=== PATIENT | female | born 1935 | race African-American/Black ===

== ENCOUNTER 2016-10-04 13:42 | Inpatient (IN) | payer MEDICARE, MEDICAID ==
[~2016-10-04] VITALS: Ht 172.7 cm; Wt 56.2 kg
--- NOTE | 2016-10-04 | NUR ---
KARIME NOTES MANUAL BP 158/88. WILL CONTINUE TO MONITOR. Addendum: 10/05/16 at 0116 by STACIA BULLOCK RN ENTERED WRONG TIME
--- NOTE | 2016-10-04 13:57 | NUR ---
[id number] FROM [facility]: LEFT LEG PAIN ON EXTENSION. NO TRAUMA. PT IS AAO3, APPEARS IN NO ACUTE DISTRESS, RESPIRATION EVEN AND UNLABORED,. SKIN IS WARM TO TOUCH AND NON DIAPHORETIC. PATIENT AFEBRILE. VSS
--- NOTE | 2016-10-04 14:13 | NUR ---
PULMONOLOGIST/INTENSIVIST AT BEDSIDE
[2016-10-04] MEDS ORDERED: ACET-2605 PO (14:37)
[2016-10-04] MEDS ORDERED: CARB1CAP3 PO ×2 (14:37)
[2016-10-04] MEDS ORDERED: ASCO500T9 PO (14:37)
[2016-10-04] MEDS ORDERED: MULT-24 PO (14:37)
[2016-10-04] MEDS ORDERED: MAG30ORA PO (14:37)
[2016-10-04] MEDS ORDERED: FERR325T28 PO (14:37)
[2016-10-04] MEDS ORDERED: POLY15DR57 EACHEYE (14:37)
[2016-10-04] MEDS ORDERED: FAMO20TA8 PO (14:37)
[2016-10-04] MEDS ORDERED: PIMA17TA PO (14:37)
[2016-10-04] MEDS ORDERED: ZINC220C8 PO (14:37)
[2016-10-04] MEDS ORDERED: MAGN400O6 PO (14:37)
[2016-10-04] MEDS ORDERED: TRAM50TA2 PO (14:37)
[2016-10-04] MEDS ORDERED: DOCU-25 PO (14:37)
[2016-10-04] MEDS ORDERED: BISA5TAB10 PO (14:37)
[2016-10-04] MEDS ORDERED: LIDO30AD10 TP (14:37)
[2016-10-04] MEDS ORDERED: ACET-868 PO (14:38)
[2016-10-04] MEDS ORDERED: NA P133E RC (14:38)
--- NOTE | 2016-10-04 14:54 | NUR ---
HODA GRIFFITH, VIRGINIA STEPHEN PROFESSOR OF THEOLOGY
[2016-10-04 15:06] LABS: BASOPHILS # (AUTO) 0.1 /CMM (0.0-0.2); BASOPHILS % (AUTO) 1.5 % (0.0-2.0); EOSINOPHILS % (AUTO) 0.2 % (0.0-6.0); HEMATOCRIT 33 % (33-45); HEMOGLOBIN 10.8 g/dL (11.5-14.8); LYMPHOCYTES # (AUTO) 1.5 /CMM (0.8-4.8); LYMPHOCYTES % (AUTO) 25.8 % (20.0-44.0); MEAN CORPUSCULAR HEMOGLOBIN 25 PG (26.0-33.0); MEAN CORPUSCULAR HGB CONC 33 g/dl (31.0-36.0); MEAN CORPUSCULAR VOLUME 75 fL (82-100); MONOCYTES # (AUTO) 0.4 /CMM (0.1-1.30); NEUTROPHILS # (AUTO) 3.9 /CMM (1.8-8.9); NEUTROPHILS % (AUTO) 66.5 % (43.0-81.0); PLATELET COUNT (AUTO) 350 /CMM (150-450); RDW COEFFICIENT OF VARIATION 14.3 (11.5-15.0); RED BLOOD CELL COUNT(AUTO) 4.33 MIL/uL (4.0-5.2); WHITE BLOOD COUNT (AUTO) 5.9 K/uL (4.3-11.0)
[2016-10-04 15:15] LABS: CALCIUM, SERUM 9.8 mg/dL (8.5-10.1); CREATININE 0.6 mg/dL (0.6-1.3)
[2016-10-04 15:19] LABS: PROTHROMBIN TIME 10.4 SECS (9.5-12.7)
--- NOTE | 2016-10-04 17:19 | NUR ---
Report given to nurse Gu for shai
[2016-10-04 17:46] LABS: APPEARANCE,URINE Clear (CLEAR); BILIRUBIN,URINE Negative (NEGATIVE); BLOOD, URINE Negative Ery/uL (NEGATIVE); COLOR,URINE Yellow (YELLOW); KETONES,URINE Negative (NEGATIVE); LEUKOCYTE ESTERASE ,URINE Negative (NEGATIVE); NITRITE, URINE Negative (NEGATIVE); PROTEIN,URINE Negative (NEGATIVE); UGLUCOSE Negative (NEGATIVE); UROBILINOGEN,URINE 0.2 EU/dL (0.2)
[2016-10-04 18:00] VITALS: BP 163/93
--- NOTE | 2016-10-04 18:00 | NUR ---
RN MS NOTES RECEIVED PATIENT FROM E.R. DEPARTMENT, UNDER THE CARE OF DR. RIVAS, WITH ADMITTING DIAGNOSIS OF LEFT HIP FRACTURE, PATIENT IS ALERT AND ORIENTED X2-3, IN STABLE CONDITION, DENIES PAIN OR DISCOMFORT AT THIS TIME, INCONTINENT TO BOTH B&B, VITAL SIGNS STABLE, SKIN ASSESSMENT DONE, SKIN CLEAR AND INTACT, WITH AN OLD SCAR NOTED ON SACRAL, ALL NEEDS ATTENDED AND MET, BED ALARM ON, CALL LIGHT WITHIN REACH, WILL CONTINUE TO MONITOR.
--- NOTE | 2016-10-04 18:24 | NUR ---
pt transported to [address] [place] [address]
[2016-10-04] MEDS ORDERED: ACETAMINOPHEN 325 MG TABLET PO PRN (19:00)
[2016-10-04] MEDS ORDERED: MAGNESIUM HYDROXIDE 30 ML UDC PO PRN (19:00)
[2016-10-04] MEDS ORDERED: NA PHOS,M-B/NA PHOS,DI-BA 1 EA ENEMA RC PRN (19:00)
[2016-10-04] MEDS ORDERED: LIDOCAINE 5% (PATCH) 1 EA PATCH TP PRN (19:00)
[2016-10-04] MEDS ORDERED: ONDANSETRON HCL/PF 4 MG/2 ML VIAL IV PRN (19:00)
[2016-10-04] MEDS ORDERED: IV 1/2NS 1000 ML 1,000 ML IV PRN (19:00)
[2016-10-04] MEDS ORDERED: BISACODYL (5 MG) 5 MG TABLET.DR PO PRN (19:00)
[2016-10-04] MEDS ORDERED: MAG HYDROX/AL HYDROX/SIMETH 30 ML UDC PO PRN (19:00)
--- NOTE | 2016-10-04 19:00 | NUR ---
RN MS NOTES RECEIVED ORDERS FROM DR. RIVAS, ORDERS NOTED AND CARRIED OUT, DR. RIVAS ORDERED DILAUDID 0.2MG AND 0.3MG IV Q2H PRN, CLARIFIED WITH DR. RIVAS IF HE MEANT 2MG OR 3MG, DID NOT RECEIVED RESPONSE AT THIS TIME, WILL ENDORSE TO FARM EQUIPMENT ENGINE MECHANIC FOR AD. PER MD, TO ORDER LOVENOX MEDICATION IF NO SURGERY TOMORROW, NO SURGERY SCHEDULED AT THIS TIME, PATIENT WILL BE SEEN BY VIRGINIA COONEY NP, WILL ENDORSE TO FARM EQUIPMENT ENGINE MECHANIC RE: LOVENOX.
--- NOTE | 2016-10-04 19:25 | NUR ---
RN OPEN NOTES RECEIVED PATIENT RESTING IN BED, EASILY AROUSABLE TO NAME, WITH SON AT BEDSIDE. A/O X2. NO SIGNS OF DISTRESS OR DISCOMFORT. BREATHING EVEN AND UNLABORED. IV ACCESS IN L WRIST PATENT AND INTACT, NO SIGNS OF REDNESS OR INFILTRATION. STATES SHE CANT GET COMFORTABLE BUT NOT IN ANY PAIN AT THIS TIME. BED IN LOW LOCKED POSITION WITH SIDE RAILS X2. CALL LIGHT WITHIN REACH. WILL CONTINUE TO MONITOR.
[2016-10-04 20:00] VITALS: BP 168/85
[2016-10-04] MEDS: TRAMADOL HCL 50 MG TABLET PO PRN (20:36)
--- NOTE | 2016-10-04 20:36 | NUR ---
RN NOTES ADMINISTERED TRAMADOL 50MG ORDERED FOR PAIN 7/10 IN LEFT HIP. WILL CONTINUE TO MONITOR.
[2016-10-04] MEDS: FAMOTIDINE (20 MG) 20 MG TABLET PO SCH (20:37)
[2016-10-04] MEDS ORDERED: IV SET PRIMARY PUMP SET 1 EA INFUS.SET MC ONE (20:49)
[2016-10-04 21:00] VITALS: BP 158/88
--- NOTE | 2016-10-04 21:00 | NUR ---
RN NOTES MANUAL BP 158/88. WILL CONTINUE TO MONITOR.
[2016-10-04] MEDS: RYTARY PO SCH (21:03)
[2016-10-04] MEDS: ATORVASTATIN 10 MG TABLET PO SCH (21:04)
[2016-10-04] MEDS: POLYVINYL ALCOHOL 15 ML BOTTLE EACHEYE SCH (21:04)
[2016-10-04] MEDS: ACETAMINOPHEN ES 500 MG TABLET PO SCH (21:05)
[2016-10-04] MEDS: DOCUSATE SODIUM 100 MG CAPSULE PO SCH (21:05)
[2016-10-04] MEDS: IV 1/2NS 1000 ML 1,000 ML IV PRN (21:06)
--- NOTE | 2016-10-04 22:00 | NUR ---
RN NOTES SPOKE WITH VIR[place]IA LEGAL INSTRUMENTS EXAMINER REGARDING PATIENT. PER VIRGINIA, PATIENT NPO AFTER MIDNIGHT FOR POSSIBLE SURGERY TOMORROW, HE WILL COME IN TOMORROW AM TO SEE PATIENT.
--- NOTE | 2016-10-05 06:55 | NUR ---
RN CLOSING NOTES PATIENT RESTING IN BED, EASILY AROUSABLE TO NAME. A/O X2-3. NO SIGNS OF DISTRESS OR DISCOMFORT. BREATHING EVEN AND UNLABORED. IV ACCESS IN L WRIST PATENT AND INTACT, NO SIGNS OF REDNESS OR INFILTRATION. DENIES ANY PAIN AT THIS TIME. ALL NEEDS MET. NO SIGNIFICANT CHANGES THROUGH THEN NIGHT. REPOSITIONED Q2H. BED IN LOW LOCKED POSITION WITH SIDE RAILS X2. CALL LIGHT WITHIN REACH. WILL ENDORSE TO AM SHIFT FOR AD.
--- NOTE | 2016-10-05 07:20 | NUR ---
MS RN OPENING NOTES RELIEVED PT FROM NIGHTSHIFT NURSE IN STABLE CONDITION. A/O X2-3. PT. RESPONSIVE TO NAME AND TOUCH. NO SOB OR SIGNS OF DISTRESS AT THIS TIME. BREATHING EVEN AND UNLABORED. NPO STATUS MAINTAINED. IV ON LEFT WRIST INTACT AND PATENT RUNNING 1/2 NS @75ML/HR. PT TOLERATING INFUSION WELL. NO COMPLAINTS OF PAIN AT THIS TIME. BED IN LOW LOCKED POSITION, SIDE RAILS UP X3, CALL LIGHT WITHIN REACH. WILL CONTINUE TO MONITOR.
--- NOTE | 2016-10-05 07:35 | NUR ---
MS RN NOTES I ASKED VIRGINIA THE PA IF I CAN GIVE THE PT. HER PO MEDICATIONS GIVEN HER NPO STATUS. V[place]IA APPROVED MEDICATION ADMINISTRATION . PT REMAINS NPO EXCEPT MEDS.
[2016-10-05 08:00] VITALS: BP 131/74
[2016-10-05] MEDS ORDERED: ZINC SULFATE 220 MG CAPSULE PO SCH (09:00)
[2016-10-05] MEDS: ENOXAPARIN SODIUM 40 MG/0.4 ML DISP.SYRIN SQ SCH (09:00)
[2016-10-05] MEDS ORDERED: MULTIVITAMINS,THERAPEUTIC 1 UDTAB TABLET PO SCH (09:00)
[2016-10-05] MEDS ORDERED: ASCORBIC ACID 500 MG TABLET PO SCH (09:00)
--- NOTE | 2016-10-05 09:00 | NUR ---
TEXTED DR. SANCHEZ FOR MRI APPROVAL.
[2016-10-05] MEDS: RYTARY PO SCH ×3 (09:17→21:22)
[2016-10-05] MEDS: DOCUSATE SODIUM 100 MG CAPSULE PO SCH ×2 (09:17→16:21)
[2016-10-05] MEDS: SENNOSIDES 8.6 MG TABLET PO SCH ×2 (09:19→16:21)
[2016-10-05] MEDS: FAMOTIDINE (20 MG) 20 MG TABLET PO SCH ×2 (09:19→21:22)
[2016-10-05] MEDS: ACETAMINOPHEN ES 500 MG TABLET PO SCH ×2 (09:19→16:21)
[2016-10-05] MEDS: POLYVINYL ALCOHOL 15 ML BOTTLE EACHEYE SCH ×3 (09:20→16:21)
--- NOTE | 2016-10-05 09:32 | NUR ---
MRI APPROVED, SPOKE TO CHARGE NURSE THAT THIS MRI WILL BE DONE LATER THIS AFTERNOON AFTER 4.30PM. AND TO HAVE THE MRI CHECKLIST READY.
[2016-10-05] MEDS: IV 1/2NS 1000 ML 1,000 ML IV PRN (13:00)
[2016-10-05] MEDS ORDERED: FERROUS SULFATE (325 MG) 325 MG/TAB TABLET PO SCH (13:00)
[2016-10-05] MEDS: TRAMADOL HCL 50 MG TABLET PO PRN ×2 (15:10→21:22)
[2016-10-05 16:00] VITALS: BP 135/69
--- NOTE | 2016-10-05 17:05 | NUR ---
MS RN NOTES PT'S SON BROUGHT HER POLST FORM. DR. RIVAS'S OFFICE WAS CALLED. A VOICEMAIL WAS LEFT. CURRENTLY AWAITING A CALL BACK.
--- NOTE | 2016-10-05 19:20 | NUR ---
MS RN CLOSING NOTES PT CURRENTLY OFF UNIT FOR MRI. ALL ORDERS WERE CARRIED OUT THROUGHOUT SHIFT. SAFETY MEASURES WERE ENFORCED AND ALL PT. NEEDS ATTENDED TO. WILL ENDORSE TO NIGHTSHIFT NURSE FOR AD
--- NOTE | 2016-10-05 19:55 | NUR ---
MS/RN NOTES PT. RETURNED FROM MRI VIA GURNEY. PT. IS AWAKE, ALERT AND ORIENTED X 2. BREATHING EVEN AND UNLABORED ON ROOM AIR. NO SOB, RESPIRATORY DISTRESS OR COMPLAINTS OF PAIN NOTED AT THIS TIME. PT. WITH LEFT WRIST 20 GAUGE PERIPHERAL IV PRESENT, PATENT AND INTACT, ADMINISTERING TO PT. 1/2 NS @ 75 ML/HR. PT. SON PRESENT AT BEDSIDE. PT. COMPLAINING OF HUNGER AND ASKING TO EAT. PER DAYSHIFT NURSE SHE CALLED DR. RIVAS REGARDING PT. DIET, UNABLE TO GET A HOLD OF DR. RIVAS A MESSAGE WAS LEFT FOR TO CALL BACK. STILL AWAITING CALL BACK FROM DR. RIVAS. PT. REMAINS NPO AT THIS TIME. BED IN LOWEST POSITION, CALL LIGHT WITHIN REACH, WILL CONTINUE TO MONITOR.
[2016-10-05 20:00] VITALS: BP 158/89
--- NOTE | 2016-10-05 20:50 | NUR ---
MS/RN NOTES INFORMED DR. RIVAS PT. IS VERY HUNGRY AND COMPLAINING ABOUT NOT EATING ALL DAY. PER DR. RIVAS NEW ORDER: PUREED WITH THIN LIQUID DIET FOR DINNER TONIGHT. PT. WILL BE NPO AGAIN POST MIDNIGHT. WILL CARRY OUT ORDERS. WILL CONTINUE TO MONITOR.
[2016-10-05] MEDS ORDERED: TRAMADOL HCL 50 MG TABLET ONE (21:01)
[2016-10-05] MEDS: ATORVASTATIN 10 MG TABLET PO SCH ×2 (21:22→22:00)
--- NOTE | 2016-10-06 06:45 | NUR ---
MS/RN NOTES PT. LYING IN BED RESTING. BREATHING EVEN AND UNLABORED ON ROOM AIR. NO SOB, RESPIRATORY DISTRESS OR COMPLAINTS OF PAIN NOTED AT THIS TIME. PT. WITH LEFT WRIST 20 GAUGE PERIPHERAL IV PRESENT, PATENT AND INTACT, ADMINISTERING TO PT. 1/2 NS @ 75 ML/HR. PT. HAS BEEN NPO POST MIDNIGHT. ALL PT. NEEDS MET. PT. OFFLOADED. TURNED AND REPOSITIONED Q2H AND NEEDED. BED IN LOWEST POSITION, CALL LIGHT WITHIN REACH, WILL ENDORSE TO DAYSHIFT NURSE FOR CONTINUITY OF CARE.
--- NOTE | 2016-10-06 07:30 | NUR ---
MS RN OPENING RECEIVED PATIENT A/OX 2-3 PERIODS OF FORGETFULNESS. PATIENT AGGITATED STATING SHE WANTS TO EAT. TOLD PATIENT I WILL ASK SURGERY IF SHE CAN EAT. PATIENT ASSISTED TO POSITION OF COMFORT. ATTEMPTING TO GET OUT OF BED AND WALK. REEDUCATED PATIENT ON FALL PRECAUTIONS AND SHE STATES SHE DOES NOT CARE AND WILL GET UP IF SHE WANTS. BED ALARM ON RAILS UPX3 AND NON SLIP SOCKS. FORESTRY WORKERS SITTING WITH PATIENT UNTIL I CAN GET AN ANSWER IF SHE CAN EAT THAT WILL CALM HER DOWN; PER PATIENT. CALL LIGHT IN REACH, BED LOWERED AND LOCKED. TV ON FOR DISTRACTION. WILL ROUND Q2H OR LESS PER NEEDS. BED BY NURSES STATION
[2016-10-06 08:00] VITALS: BP 124/81
--- NOTE | 2016-10-06 08:15 | NUR ---
MS RN NOTES COURY AT BEDSIDE STATES PATIENT CAN EAT AND DR SWEENEY WILL DETERMINE IF SURGERY NECESSARY TOMORROW
--- NOTE | 2016-10-06 08:30 | NUR ---
MS RN NOTES PATIENT REFUSING MEDICATIONS. EDUCATED ON IMPORTANCE AND PATIENT STATES UNDERSTANDING
[2016-10-06] MEDS: SENNOSIDES 8.6 MG TABLET PO SCH ×2 (09:00→16:08)
[2016-10-06] MEDS: FAMOTIDINE (20 MG) 20 MG TABLET PO SCH ×3 (09:00→22:06)
[2016-10-06] MEDS: RYTARY PO SCH ×4 (09:00→22:06)
[2016-10-06] MEDS: ENOXAPARIN SODIUM 40 MG/0.4 ML DISP.SYRIN SQ SCH (09:00)
[2016-10-06] MEDS: ACETAMINOPHEN ES 500 MG TABLET PO SCH ×2 (09:00→16:08)
[2016-10-06] MEDS: DOCUSATE SODIUM 100 MG CAPSULE PO SCH ×2 (09:00→16:08)
--- NOTE | 2016-10-06 09:00 | NUR ---
MS RN NOTES PATIENT REFUSING MEDICATIONS. EDUCATED ON IMPORTANCE AND PATIENT STATES UNDERSTANDING
[2016-10-06] MEDS: POLYVINYL ALCOHOL 15 ML BOTTLE EACHEYE SCH ×3 (09:23→16:10)
[2016-10-06] MEDS: IV 1/2NS 1000 ML 1,000 ML IV PRN (09:55)
--- NOTE | 2016-10-06 10:15 | NUR ---
MS RN NOTES 3RD ATTEMPT. PATIENT REFUSING MEDICATIONS. EDUCATED ON IMPORTANCE AND PATIENT STATES UNDERSTANDING. PER DR SWEENEY NO SURGERY IS NEEDED FOR PATIENT. NOTIFIED DR RIVAS
--- NOTE | 2016-10-06 10:19 | NUR ---
MS RN NOTES PER DR SWEENEY NO SURGERY NEEDED. NOTIFIED DR RIVAS
[2016-10-06 16:00] VITALS: BP 110/63
--- NOTE | 2016-10-06 16:21 | NUR ---
MS RN NOTES NOTIFIED DR RIVAS PATIENT REFUSING ANTIPARKINSONS MEDICATIONS AND PATIENT IS BECOMING MORE LETHARGIC AND CONFUSED. PER MD NO NEW ORDERS
--- NOTE | 2016-10-06 19:00 | NUR ---
MS RN CLOSING PATIENT STABLE NO COMPLICATIONS NO CHANGES. PATIENT STATES NO NEEDS AT THIS TIME AND RAILS UPX3 FOR SAFETY, BED LOWERED AND LOCKED. CARE WILL BE ENDORSED TO RN FOR AD
--- NOTE | 2016-10-06 19:20 | NUR ---
MS/RN NOTES RECEIVED PT. LYING IN BED, AWAKE, ALERT AND ORIENTED X 2. BREATHING EVEN AND UNLABORED ON ROOM AIR. NO SOB, RESPIRATORY DISTRESS OR COMPLAINTS OF PAIN NOTED AT THIS TIME. PT. WITH LEFT WRIST 20 GAUGE PERIPHERAL IV PRESENT, PATENT AND INTACT, ADMINISTERING TO PT. 1/2 NS @ 75 ML/HR. BED IN LOWEST POSITION, CALL LIGHT WITHIN REACH, WILL CONTINUE TO MONITOR.
[2016-10-06 20:00] VITALS: BP 152/96
[2016-10-06] MEDS: ATORVASTATIN 10 MG TABLET PO SCH (22:06)
--- NOTE | 2016-10-07 06:30 | NUR ---
MS/RN NOTES PT. LYING IN BED RESTING. BREATHING EVEN AND UNLABORED ON ROOM AIR. NO SOB, RESPIRATORY DISTRESS OR COMPLAINTS OF PAIN NOTED AT THIS TIME. PT. WITH LEFT WRIST 20 GAUGE PERIPHERAL IV PRESENT, PATENT AND INTACT, ADMINISTERING TO PT. 1/2 NS @ 75 ML/HR. ALL PT. NEEDS MET. PT. OFFLOADED. TURNED AND REPOSITIONED Q2H AND NEEDED. BED IN LOWEST POSITION, CALL LIGHT WITHIN REACH, WILL ENDORSE TO DAYSHIFT NURSE FOR CONTINUITY OF CARE.
--- NOTE | 2016-10-07 07:30 | NUR ---
MS/RN OPENING NOTE PT. IS AWAKE, LYING IN BED, AWAKE, A&OX 2, PERIODS OF CONFUSION. NOT IN DISTRESS, NO SOB, BREATHING EVEN AND UNLABORED ON ROOM AIR. DOES NOT C/O PAIN. PT. IV ACCESS ON LEFT FOREARM INFUSING IV FLUIDS AT 75ML/HR. BED IN LOWEST POSITION, CALL LIGHT WITHIN REACH, WILL CONTINUE TO MONITOR.
[2016-10-07 08:00] VITALS: BP 180/95
[2016-10-07] MEDS: FAMOTIDINE (20 MG) 20 MG TABLET PO SCH ×2 (09:00→09:12)
[2016-10-07] MEDS: SENNOSIDES 8.6 MG TABLET PO SCH ×3 (09:00→17:00)
[2016-10-07] MEDS: ACETAMINOPHEN ES 500 MG TABLET PO SCH ×3 (09:00→17:00)
[2016-10-07] MEDS: ENOXAPARIN SODIUM 40 MG/0.4 ML DISP.SYRIN SQ SCH ×2 (09:00→09:19)
[2016-10-07] MEDS: DOCUSATE SODIUM 100 MG CAPSULE PO SCH ×3 (09:00→17:00)
[2016-10-07] MEDS: RYTARY PO SCH ×3 (09:00→15:00)
--- NOTE | 2016-10-07 09:00 | NUR ---
MS/ RN MEDICATIONS PT. REFUSED MEDICATIONS, PT. WAS EXPLAINED THE IMPORTANCE OF HER MEDICATIONS AND WAS ENCOURAGED TO TAKE THEM. MORNING MEDICATION WAS NOT GIVEN.
[2016-10-07] MEDS: POLYVINYL ALCOHOL 15 ML BOTTLE EACHEYE SCH ×3 (09:18→17:00)
[2016-10-07] MEDS: IV 1/2NS 1000 ML 1,000 ML IV PRN (09:29)
--- NOTE | 2016-10-07 09:30 | NUR ---
MS/RN HIGH BLOOD PRESSURE PT. HAD HIGH BLOOD PRESSURE AT 0800. CALLED DR. RIVAS, AND SPOKE WITH QUOTATION CLERK. PROVIDED BP RESULTS TO QUOTATION CLERK AND THAT PT. REFUSES TO TAKE MEDICATIONS.
--- NOTE | 2016-10-07 13:50 | NUR ---
MS/RN RECHECKED BP BP WAS 147/86, HR 90, AND SPO2 99% ON ROOM AIR. PT. WAS NOT IN DISTRESS.
--- NOTE | 2016-10-07 13:50 | NUR ---
MS/RN IV PT. IV ACCESS SITE WAS BECOMING SWOLLEN, IV WAS DISCONTINUED INFUSING AT 75ML/HR.
[2016-10-07 16:00] VITALS: BP 183/91
--- NOTE | 2016-10-07 20:03 | NUR ---
MS/WOMEN DESIGNER NOTE PT.DISCHARGE ORDER RECEIVED FROM DR. RIVAS. PT. LEFT IN STABLE CONDITION. IV SITE REMOVED ID BAND REMOVED. REPORT HAS BEEN GIVEN TO RANDI FROM [facility]. MEDICATION PICKED UP FROM PHARMACY AND GAVE TO EMT. PT. LEFT WITH ALL OF HER PERSONAL BELONGINGS. PT. REFUSED ALL MEDS DURING THE DAY. PT. TRANSPORTED TO SNF BY AMBULANCE MED RESPONSE AND TWO BAG WASHER. MED RECONCILIATION ATTACHED.
== END 2016-10-07 20:06 | DRG 542 ==
LOC: ER 13:48 → MED 17:09
PROVIDERS: ADMIT Internal Medicine; ATTEND Internal Medicine
DX: M84.452A Pathological fracture, left femur, initial encounter for fracture (principal); G93.40 Encephalopathy, unspecified; R64 Cachexia; D63.8 Anemia in other chronic diseases classified elsewhere; G30.9 Alzheimer's disease, unspecified; G20 Parkinson's disease; M25.552 Pain in left hip; M19.90 Unspecified osteoarthritis, unspecified site; G89.29 Other chronic pain; F02.80 Dementia in other diseases classified elsewhere, unspecified severity, without behavioral disturbance, psychotic disturbance, mood disturbance, and anxiety; Z90.710 Acquired absence of both cervix and uterus; Z87.891 Personal history of nicotine dependence; R09.02 Hypoxemia; I10 Essential (primary) hypertension; Z99.3 Dependence on wheelchair
CPT/HCPCS: 36415; 70450-TC; 71010-TC; 73510-TC; 73564-TC; 73721-TC; 80048-TC; 81000-TC; 85025-TC; 85730-TC; 87081-TC; 93307-TC; A4606; J1650; J3490; Z7610

== ENCOUNTER 2017-03-05 22:51 | Inpatient (IN) | payer MEDICAID, MEDICARE ==
[~2017-03-05] VITALS: Ht 167.6 cm; Wt 52.2 kg
[~2017-03-05 22:51] MED LIST: ACET-2605 PO; ACET-868 PO; ASCO500T9 PO; BISA5TAB10 PO; CARB1CAP3 PO; DOCU-25 PO; FAMO20TA8 PO; FERR325T28 PO; LIDO30AD10 TP; MAG30ORA PO; MAGN400O6 PO; MULT-24 PO; NA P133E RC; PIMA17TA PO; POLY15DR57 EACHEYE; TRAM50TA2 PO; ZINC220C8 PO
--- NOTE | 2017-03-05 23:34 | NUR ---
PT TYLER FROM [facility], PT PER EMS WAS EATING DINNER WHEN JAW JOCKED. PT AOX1 RR EVEN AND UNLABORED. NO SOB NOTED. NAD NOTED. NO NVD AT THIS TIME. PT GOWNED AND PLACED ON MONITOR. DR. VEGA AT BEDSIDE FOR EVAL.
--- NOTE | 2017-03-06 | NUR ---
SON AT BEDSIDE
--- NOTE | 2017-03-06 00:16 | NUR ---
DR. VEGA AT BEDSIDE FOR CLINICAL CONSCIOUS SEDATION. RT AT BEDSIDE
--- NOTE | 2017-03-06 00:36 | NUR ---
PT APPEARS TO BE COMFORTABLE. AOX1 (BASELINE) NO SOB NOTED.
--- NOTE | 2017-03-06 00:52 | NUR ---
SON, AUTUMN REFUSES FOR PT CT OF HEAD. RISK AND BENEFITS EXPLAINED X3. SON STRONGLY REFUSED.
--- NOTE | 2017-03-06 00:59 | NUR ---
DR. VEGA AT BEDSIDE SPEAKING TO FAMILY REGARDING POC
--- NOTE | 2017-03-06 01:05 | NUR ---
[facility] in [facility] - 03/06/17 at 0148 by KADY PT TO RADIOLOPGY FOR CT HEAD
--- NOTE | 2017-03-06 01:05 | NUR ---
PT TO RADIOLOPGY FOR CT FACE
--- NOTE | 2017-03-06 01:15 | NUR ---
PT RETURNED FROM CT.
--- NOTE | 2017-03-06 01:56 | NUR ---
MD VEGA IS SPEAKING WITH MD COYNE
--- NOTE | 2017-03-06 02:13 | NUR ---
CALLED JACQUELINE, CT FACIAL BONES CURRENTLY BEING READ AT THIS TIME.
--- NOTE | 2017-03-06 02:36 | NUR ---
DR. VEGA AT BEDSIDE SPEAKING TO PT AND PT FAMILY REGARDING RESULTS
--- NOTE | 2017-03-06 03:10 | NUR ---
DR. VEGA AT BEDSIDE FOR CONSCIOUS SEDATION FOR ORAL REDUCTION OF SHARAN ANTERIOR DISLOCATION OF MANDIBLE. Addendum: 03/06/17 at 0334 by KADY RT AT BEDSIDE
--- NOTE | 2017-03-06 03:15 | NUR ---
DR. VEGA UNSUCCESSFUL REDUCTION. RT AT BEDSIDE.
--- NOTE | 2017-03-06 03:18 | NUR ---
DR. THORNE CALLED FOR CONSULT ; CALL TRANSFERED TO DR. VEGA.
[2017-03-06 03:53] LABS: BASOPHILS % (AUTO) 0.1 % (0.0-2.0); HEMATOCRIT 37 % (33-45); HEMOGLOBIN 11.6 g/dL (11.5-14.8); LYMPHOCYTES # (AUTO) 0.7 /CMM (0.8-4.8); LYMPHOCYTES % (AUTO) 4.8 % (20.0-44.0); MEAN CORPUSCULAR HEMOGLOBIN 25 PG (26.0-33.0); MEAN CORPUSCULAR HGB CONC 31 g/dl (31.0-36.0); MEAN CORPUSCULAR VOLUME 79 fL (82-100); MONOCYTES % (AUTO) 6.5 % (2.0-12.0); NEUTROPHILS # (AUTO) 13.1 /CMM (1.8-8.9); NEUTROPHILS % (AUTO) 88.6 % (43.0-81.0); PLATELET COUNT (AUTO) 410 /CMM (150-450); RDW COEFFICIENT OF VARIATION 14.1 (11.5-15.0); WHITE BLOOD COUNT (AUTO) 14.8 K/uL (4.3-11.0)
[2017-03-06 04:03] LABS: CALCIUM, SERUM 9.6 mg/dL (8.5-10.1); CARBON DIOXIDE 26 mmol/L (21-32); CHLORIDE 104 mmol/L (98-107); CREATININE 0.6 mg/dL (0.6-1.3); GLUCOSE 88 mg/dL (74-106); POTASSIUM 3.6 mmol/L (3.5-5.1); SODIUM SERUM 141 mmol/L (136-145); UREA NITROGEN, BLOOD 16 mg/dL (7-18)
[2017-03-06 04:08] LABS: INR 1.02 (0.87-1.13); PROTHROMBIN TIME 10.6 SECS (9.5-12.7)
[2017-03-06 04:12] LABS: TROPONIN I < 0.017 ng/mL (0.00-0.056)
--- NOTE | 2017-03-06 05:06 | NUR ---
REPORT GIVEN TO KARIME MAGUIRE FOR CONTINUE OF CARE.
--- NOTE | 2017-03-06 05:20 | NUR ---
PT TRANSFERRED VIA GURNEY TO MS [facility]
--- NOTE | 2017-03-06 05:30 | NUR ---
MS/RN OPENING NOTES PT ARRIVED TO UNIT FROM ER VIA GURNEY WITH SON, AUTUMN WADE AT BEDSIDE. PT A/OX1. ABLE TO NOD YES/NO. ON ROOM AIR, BREATHING EVEN AND UNLABORED. NO S/S OF SOB. DENIES PAIN. IV TO LAC PATENT AND INTACT. BELONGINGS SENT HOME WITH SON. ORIENTED PT AND SON TO ROOM AND CALL LIGHT. BED IN LOW/LOCKED POSITION WITH CALL LIGHT IN REACH. SIDE RAILS UPX2. HEELS OFFLOADED. WILL CONTINUE TO MONITOR
[2017-03-06 06:00] VITALS: BP 157/93
--- NOTE | 2017-03-06 07:30 | NUR ---
MS/RN Patient received Patient received from night time nanny. NPO at this time due to dislocated jaw, awaiting ENT consukt with Dr Bueno. Able to maintain clear airway, saturation >94%. IV fluids infusing @75ml/hr. Will continue to monitor to ensure safety.
--- NOTE | 2017-03-06 07:35 | NUR ---
MS/RN CLOSING NOTES PT RESTING COMFORTABLY IN BED, HOB ELEVATED. REMAINS ON ROOM AIR, BREATHING EVEN AND UNLABORED. NO S/S OF SOB OR PAIN. IV TO LAC PATENT AND INTACT RUNNING IVF ORDERED. MADE PT COMFORTABLE, HEELS OFFLOADED. WOUND CONSULT ORDERED FOR SACRAL WOUND. BED IN LOW/LOCKED POSITION WITH CALL LIGHT IN REACH. SIDE RAILS UPX2. ENDORSED TO AM SHIFT AD.
[2017-03-06 08:00] VITALS: BP 158/86
--- NOTE | 2017-03-06 09:00 | NUR ---
MS/RN Medications held Morning medications held as patient unable to swallow due to locked jaw.
--- NOTE | 2017-03-06 10:30 | NUR ---
MS/RN Morning care Morning care carried out.
--- NOTE | 2017-03-06 12:02 | NUR ---
MS/RN S/B Dr Almendarez Seen by Dr Almendarez - awaiting further orders from Dr Bueno. Office called, aware of new consult.
--- NOTE | 2017-03-06 13:23 | NUR ---
MS/RN Consent Consent forms signed by son and placed in front of chart.
--- NOTE | 2017-03-06 15:04 | NUR ---
Social service consult requested by Dr. Alcantar for decreased mobility, Hx of Dementia and readmission score of 9. SW discussed case with caseworker intake Dee Dee and referred pt. to for discharge planning. Pt. resides at [facility] located at [address] [place] [address]. [place] [address]. .
[2017-03-06 16:00] VITALS: BP 152/91
--- NOTE | 2017-03-06 18:24 | NUR ---
MS/RN End note Patient continues to deny pain, all needs attended, kept clean and comfortable. Regular mouth care provided, vasolene packets ordered from pharmacy. Will continue to monitor and endorse to night court magistrate.
--- NOTE | 2017-03-06 18:30 | NUR ---
MS/RN Turning and repositioning Patient has been turned and repositioned every 2-3 hours throughout the shift. Please see BROOMCORN PRESS FEEDER flowsheet for turning schedule.
--- NOTE | 2017-03-06 18:41 | NUR ---
Patient resides at [facility] located at [address] [place], [place] [address] [address]. . She requires max assist with adl's. Has hx of Dementia and Parkinson ds. Family is involved and supportive with plan of care. Plan to dc back to SNF when discharge. Addendum: 03/06/17 at 1841 by SHAWN HAWK RN Amended: Links added.
--- NOTE | 2017-03-06 19:20 | NUR ---
MS/RN OPENING NOTES PT RECEIVED RESTING COMFORTABLY IN BED. A/OX2. SEMI FOWLERS POSITION. ON ROOM AIR, BREATHING EVEN AND UNLABORED. NO S/S OF SOB, PT DENIES PAIN. ABLE TO NOD YES/NO AND VERBALIZE NEEDS TOLERATED. IV TO LAC RUNNING D5 1/2 NS AT 75ML/HR. PT FOR REDUCTION OF BILATERAL MANDIBULAR DISLOCATION (LOWER JAW), POSSIBLE CORONOIDECTOMY BILATERAL TOMORROW MORNING WITH DR. THORNE. CONSENTS SIGNED AND FLAGGED IN THE CHART. BED IN LOW/LOCKED POSITION, CALL LIGHT IN REACH. SIDE RAILS UPX2. WILL CONTINUE TO MONITOR
[2017-03-06 20:00] VITALS: BP 154/98
--- NOTE | 2017-03-07 06:30 | NUR ---
PT REFUSED INITIAL ATTEMPT OF EKG KARIME AVILA AT BEDSIDE AND AWARE...
--- NOTE | 2017-03-07 07:05 | NUR ---
MS/RN CLOSING NOTES PT TAKEN DOWN FOR SURGERY. ACCOMPANIED BY SON AUTUMN. ON ROOM AIR, BREATHING EVEN AND UNLABORED. NO S/S OF DISTRESS. DENIES PAIN. PT REMAINED NPO DURING SHIFT. IV TO LAC PATENT AND INTACT. ASSISTED PT WITH TURNING/REPOSITIONING Q2H, OFFLOADED HEELS. MADE PT COMFORTABLE DURING SHIFT. ALL NEEDS MET AND ATTENDED. ENDORSED TO AM SHIFT AD.
--- NOTE | 2017-03-07 07:30 | NUR ---
MS/RN Off floor Patient off floor at this time, in OR.
--- NOTE | 2017-03-07 08:30 | NUR ---
MS/RN Refused surgery Patient back in room from operating room, surgery canceled as refusing procedure. Son with with patient and unable to persuade her to go ahead with planned procedure. Patient has history of dementia and A/OX2-3, son whom is here with patient does not have DPOA over his mother for health care decision, sister who lives in [place] is designated DPOA. Son has spoken to her and she is in agreement that patient requires surgery. Will fax over paperwork and signed letter saying that she gives consent for surgery.
--- NOTE | 2017-03-07 09:40 | NUR ---
MS/RN IV fluids New bag of IV fluids hung, no changes to rate.
--- NOTE | 2017-03-07 11:27 | NUR ---
WOUND CARE CONSULT PATIENT SEEN AND SKIN INTEGRITY ASSESSMENT DONE. PLEASE SEE OUTSIDE PLANT SUPERVISOR ASSESSMENT IN PCS FOR TODAY ALONG WITH ALL RECOMMENDATIONS. PATIENT WITH MAY AT 11, ON AGNIESZKA ISOFLEX LOW AIRLOSS BED, CONTINUE TURNING Q 2 HOURS PATIENT CONDITION PERMITS, BILATERAL HEEL FLOATING. RECOMMEND SURGICAL CONSULT FOR POSSIBLE DEBRIDEMENT OF SACRAL ULCER. MD IN AGREEMENT WITH TREATMENT PLANS AND PLAN OF CARE. ALL SKIN MANAGMENT DISCUSSED WITH NURSING STAFF AT THE BEDSIDE. CONTINUE USE OF Z GUARD FOR SKIN/MOISTURE MANAGMENT. Addendum: 03/07/17 at 1131 by KENNEDY GUTIERREZ WNDNU Amended: Links added.
[2017-03-07 11:55] LABS: PHOSPHORUS 1.5 mg/dL (2.5-4.9)
[2017-03-07 12:05] LABS: THYROID STIMULATING HORMONE 0.89 uIU/mL (0.358-3.74)
--- NOTE | 2017-03-07 13:46 | NUR ---
MS/RN Dressing change Wound redressed as ordered with hydrogel and mepilex.
[2017-03-07 16:00] VITALS: BP 147/98
--- NOTE | 2017-03-07 18:10 | NUR ---
MS/RN End note Awaiting Dr Bustillo for plan of care as to regards to any possible surgery that may be needed. Kept clean and dry, regular mouth care provided. Has been turned and repositioned every 2-3 hours or as condition allows. Please refer to NETWORK ENGINEER ADMINISTRATOR flowsheet for turning schedule. Will endorse to nightshift.
--- NOTE | 2017-03-07 19:30 | NUR ---
MS RN OPENING NOTES: PATIENT IN BED, AOX2, ON ROOM AIR, BREATHING EVEN AND UNLABORED. BREATH SOUNDS CLEAR TO AUSCULTATION. PATIENT APPEARS CALM. WITH MANDIBULAR DISLOCATION, MOUTH IS OPENED, WITH PATIENT HAVING DIFFICULTY MOVING JAW. HOB MAINTAINED ELEVATED, SUCTIONED MOUTH PRN. PIV OVER LAC G18 INTACT AND PATENT, INFUSING WELL WITH D5 1/2 NS RUNNING AT 75 ML/HR. PROVIDED FOR COMFORT AND SAFETY. FOR ROUTINE ORAL BED IN LOWEST AND LOCKED POSITION, SIDERAILS UPX3. BED ALARMS ON. WILL CONT TO MONITOR.
[2017-03-07 20:00] VITALS: BP 156/92
--- NOTE | 2017-03-08 05:17 | NUR ---
RN NOTES: PATIENT MOANING, APPEARS UNCOMFORTABLE. WHEN ASKED IF SHE IS IN PAIN, PATIENT SLIGHTLY NODDED HER HEAD. VS CHECKED: BP: 188/73, HR: 89, RR: 22, O2 SAT: 98% ON ROOM AIR. ADMINISTERED MORPHINE 2 MG IV PRN. WILL CONT TO MONITOR.
[2017-03-08 06:10] VITALS: BP 169/79
[2017-03-08 06:30] VITALS: BP 175/96
--- NOTE | 2017-03-08 06:35 | NUR ---
RN NOTES: PATIENT'S BP STILL ELEVATED AT 175/96, HR: 88. NO CHANGE IN PATIENT'S MENTAL STATUS, AWAKE BUT WITH UNCLEAR SPEECH DUE TO MANDIBULAR DISLOCATION. PAGED DR ANIBAL LEW. AWAITING CALL BACK.
--- NOTE | 2017-03-08 07:25 | NUR ---
RN Initial Notes: Patient resting in bed. Patient alert oriented x2. Non-labored breathing on room air. No facial grimacing noted, mouth open. Head of bed elevated. IV site, gauge 18, patent and intact. Bed in lowest locked position. Call light within reach. Will continue to monitor.
--- NOTE | 2017-03-08 07:30 | NUR ---
MS RN CLOSING NOTES: PATIENT IN BED, AOX1-2, ON ROOM AIR, BREATHING EVEN AND UNLABORED. HOWEVER, PATIENT STILL APPEARS TO BE MOANING OCCASIONALLY, STILL WITH DIFFICULTY IN MAKING HER NEEDS UNDERSTOOD. STILL AWAITING CALL BACK FROM DR ANIBAL GUEVARA PATIENT'S ELEVATED BP. PIV OVER LAC G18 INTACT NAD INFUSING WELL WITH D5 1/2 NS RUNNING AT 75 ML/HR. PROVIDED FOR COMFORT AND SAFETY. BED IN LOWEST AND LOCKED POSITION, SIDERAILS UP X3. ENDORSED TO AM RN FOR AD.
[2017-03-08 08:00] VITALS: BP 162/84
--- NOTE | 2017-03-08 09:00 | NUR ---
RN Notes: Spoke with patient's son. He alerted me that the patient's daughter will be sending the power of claim attorney agreement to do the surgery today
[2017-03-08 16:00] VITALS: BP 130/78
--- NOTE | 2017-03-08 19:20 | NUR ---
RN Closing Notes: Patient resting in bed. Patient alert oriented x2. Non-labored breathing on room air. No facial grimacing noted, mouth open. Head of bed elevated. IV site, gauge 18, patent and intact. Patient's daughter faxed the POA agreement to us earlier. It was placed in the patient's chart. Bed in lowest locked position. Head of bed in semi-renee position. Call light within reach. Patient endorsed to next shift.
--- NOTE | 2017-03-08 19:30 | NUR ---
MS RN OPENING NOTES: PATIENT IN BED, AOX2, ON ROOM AIR, BREATHING EVEN AND UNLABORED. BREATH SOUNDS CLEAR TO AUSCULTATION. PIV OVER LAC G18 INTACT AND INFUSING WELL WITH D512 NS RUNNING AT 75 ML/HR. PROVIDED FOR COMFORT AND SAFETY. HOB MAINTAINED ELEVATED. ON NPO, WITH ASPIRATION PRECAUTIONS. SUCTION SETUP AT BEDSIDE. SUCTIONED MOUTH PRN. FOR REGULAR ORAL CARE. BED IN LOWEST AND LOCKED POSITION, SIDERAILS UPX3. WILL CONT TO MONITOR.
[2017-03-08 20:00] VITALS: BP 102/65
--- NOTE | 2017-03-09 00:30 | NUR ---
RN NOTES: PATIENT TRANSFERRED TO MS 3RD FLOOR. NO ACUTE CHANGE IN CONDITION THROUGH SHIFT. REPORT GIVEN TO KARIME LIND FOR CONTINUITY OF CARE. PATIENT WAS TRANSFERRED VIA GURNEY, ACCOMPANIED BY REFUELING RAMP ATTENDANT AND RN IN STABLE CONDITION.
[2017-03-09 00:52] VITALS: BP 118/75
--- NOTE | 2017-03-09 00:52 | NUR ---
MS RN OPENING NOTES: PATIENT IN BED, TRANSPORTED TO 322-1 AOX1,FROM 202-1 MS, BREATHING EVEN AND UNLABORED. ROOM AIR 97%, LAC G18 INTACT AND INFUSING WELL WITH D5 1/2 NS RUNNING AT 75 ML/HR. SAFETY MEASURES PROVIDED. ASPIRATION PRECAUTIONS. BED IN LOWEST AND LOCKED POSITION, SIDERAILS UPX3. WILL CONT TO MONITOR.
--- NOTE | 2017-03-09 00:52 | NUR ---
PATIENT TRANSPORTED TO [facility] NO INCIDENT.
--- NOTE | 2017-03-09 06:31 | NUR ---
MS RN CLOSING NOTES HEAD OF BED ELEVATED FOR BETTER LUNG EXPANSION AND GOOD CIRCULATION. ASLEEP AND EASILY AWAKEN, TOLERATING ROOM AIR 97%.NO S/S OF RESPIRATORY DISTRESS IN STABLE CONDITION. NO S/S OF IN PAIN, AFEBRILE, IV SITE NO S/S OF INFILTRATED PATENT AND INTACT, NEEDS ATTENDED AND ANTICIPATED. NURSING CARE RENDERED.. KEPT CLEAN AND DRY AND COMFORTABLE, FREQUENT VISUAL CHECK DONE FOR SAFETY EVERY 2 HOURS. TX ORDERED, GOOD SKIN CARE PROVIDED. SAFE HAZARD FREE ENVIRONMENT PROVIDED..REPOSITIONED Q2H. CALL LIGHT WITHIN EASY TO REACH, ON LOW BED AT ALL TIMES TO ENSURE SAFETY, WILL ENDORSE TO THE NEXT SHIFT CONTINUE PLAN OF CARE.
[2017-03-09 08:00] VITALS: BP 144/78
[2017-03-09 12:00] VITALS: BP 134/76
--- NOTE | 2017-03-09 15:49 | NUR ---
MS RN NOTE: PT KEPT CLEAN AND DRY AND COMFORTABLE, VISUAL CHECK DONE FOR SAFETY EVERY 2 HOURS.WOUND TX DONE ORDERED, GOOD SKIN CARE PROVIDED. PT SAFE HAZARD FREE ENVIRONMENT PROVIDED..REPOSITIONED Q2H. CALL LIGHT WITHIN EASY TO REACH, ON LOW BED AT ALL TIMES TO ENSURE SAFETY, WILL CONTINUE MONITORING FOR SAFETY
[2017-03-09 16:00] VITALS: BP 159/80
--- NOTE | 2017-03-09 16:14 | NUR ---
MS RN NOTE; DR RUFINO BAKER NOTIFIED PT VSS BP 159/80 TEMP 99.5 NEW ORDER TYLENOL 650 MG SUPPOSITORY PRN Q 6 HR ORDER PLACED AND CARED OUT
--- NOTE | 2017-03-09 18:15 | NUR ---
MS RN CLOSING NOTES: PATIENT IN BED, AOX1-2, ON ROOM AIR, BREATHING EVEN AND UNLABORED. PATIENT'S ELEVATED BP. LAC G18 INTACT NAD INFUSING WELL WITH D5 1/2 NS RUNNING AT 75 ML/HR.CONTINUE ON NPO PROVIDED FOR COMFORT AND SAFETY. BED IN LOWEST AND LOCKED POSITION, SIDERAILS UP X3. ENDORSED TO PM RN FOR AD.
--- NOTE | 2017-03-09 19:10 | NUR ---
MS/RN OPENING NOTES PT RECEIVED WITH HOB ELEVATED. RESTING COMFORTABLY IN BED. ON ROOM AIR, BREATHING EVEN AND UNLABORED. NO S/S OF SOB, DENIES PAIN. IV TO LAC PATENT AND INTACT RUNNING IVF ORDERED. BED IN LOW/LOCKED POSITION WITH CALL LIGHT IN REACH. SIDE RAILS UPX2. WILL CONTINUE TO MONITOR
[2017-03-09 20:00] VITALS: BP 151/78
--- NOTE | 2017-03-09 20:00 | NUR ---
MS/RN NOTES TEMP=99.5F, COOLING MEASURES IMPLEMENTED. WILL MONITOR
[2017-03-10 07:00] LABS: BASOPHILS % (AUTO) 0.1 % (0.0-2.0); EOSINOPHILS % (AUTO) 0.2 % (0.0-6.0); HEMATOCRIT 34 % (33-45); HEMOGLOBIN 11.2 g/dL (11.5-14.8); LYMPHOCYTES % (AUTO) 10.5 % (20.0-44.0); MEAN CORPUSCULAR HEMOGLOBIN 25 PG (26.0-33.0); MEAN CORPUSCULAR HGB CONC 33 g/dl (31.0-36.0); MEAN CORPUSCULAR VOLUME 77 fL (82-100); MONOCYTES # (AUTO) 0.6 /CMM (0.1-1.30); MONOCYTES % (AUTO) 6.8 % (2.0-12.0); NEUTROPHILS # (AUTO) 7.5 /CMM (1.8-8.9); NEUTROPHILS % (AUTO) 82.4 % (43.0-81.0); PLATELET COUNT (AUTO) 390 /CMM (150-450); RED BLOOD CELL COUNT(AUTO) 4.45 MIL/uL (4.0-5.2); WHITE BLOOD COUNT (AUTO) 9.1 K/uL (4.3-11.0)
[2017-03-10 07:19] LABS: INR 1.07 (0.87-1.13); PROTHROMBIN TIME 11.1 SECS (9.5-12.7)
--- NOTE | 2017-03-10 07:30 | NUR ---
RN OPENING NOTES RECEIVED PT. IN BED A&OX1. PT. 'S MOUTH WIDE OPEN.BREATHING ON ROOM AIR UNLABORED. NO S/S OF DISTRESS. IV FLUIDS RUNNING AT 75 ML/HR. BED IS IN LOW, LOCKED POSITION, 2 SIDE RAILS UP, AND CALL LIGHT IS WITHIN REACH. WILL CONTINUE TO ASSESS AND MONITOR.
--- NOTE | 2017-03-10 07:30 | NUR ---
RN NOTES PT. IS NPO DUE TO JAW DISLOCATION.
[2017-03-10 07:35] LABS: CALCIUM, SERUM 8.8 mg/dL (8.5-10.1); CARBON DIOXIDE 29 mmol/L (21-32); CHLORIDE 101 mmol/L (98-107); CREATININE 0.4 mg/dL (0.6-1.3); GLUCOSE 120 mg/dL (74-106); MAGNESIUM 1.7 mg/dL (1.8-2.4); PHOSPHORUS 1.5 mg/dL (2.5-4.9); SODIUM SERUM 138 mmol/L (136-145); UREA NITROGEN, BLOOD 5 mg/dL (7-18)
[2017-03-10 07:51] LABS: POTASSIUM 2.2 mmol/L (3.5-5.1)
--- NOTE | 2017-03-10 07:51 | NUR ---
MS/RN NOTES PT RESTING IN BED. HOB ELEVATED. A/OX1-2, ON ROOM AIR, BREATHING EVEN AND UNLABORED. NO SOB OR DISTRESS NOTED. DENIES PAIN. ORAL CARE AND WOUND CARE PROVIDED DURING SHIFT. SUCTION PREPARED AT BEDSIDE. TURNED/REPOSITIONED Q2H AND OFFLOADED HEELS. MADE PT COMFORTABLE DURING SHIFT. ALL NEEDS MET AND ATTENDED. BED IN LOW & LOCKED POSITION WITH CALL LIGHT IN REACH. SIDE RAILS UPX2. ENDORSED TO AM SHIFT AD.
[2017-03-10 08:00] VITALS: BP 157/86
--- NOTE | 2017-03-10 08:48 | NUR ---
RN NOTES ORAL CARE WAS PERFORMED.
[2017-03-10 08:52] VITALS: BP 157/86
--- NOTE | 2017-03-10 09:42 | NUR ---
RN NOTES CALLED DR. WEBB'S OFFICE AND SPOKE WITH PUMP MECHANIC REGARDING PT.'S NEW CRITICAL LABS, AND FOR NEW ORDERS. PUMP MECHANIC SAID SHE WILL PAGE MD TO CALL BACK.
--- NOTE | 2017-03-10 09:50 | NUR ---
RN NOTES LOVENOX SUBQ HELD AT THIS TIME, AWAITING TO TALK TO MD ABOUT IF PT. IS GOING FOR POSSIBLE SURGERY.
--- NOTE | 2017-03-10 11:05 | NUR ---
RN NOTES NOTIFIED DR. BAKER PT.'S POTASSIUM LEVEL, HOLDING LOVENOX TODAY FOR POSSIBLE SURGERY, AND POSSIBLE ORAL THRUSH, DISCUSSED WITH DR. BAKER NO NEW ORDERS GIVEN. ALSO NOTIFIED MD ABOUT PT.'S DAUGHTERS DPOA PAPERWORK WILL BE FAXED TODAY FOR SURGERY.
[2017-03-10 16:00] VITALS: BP 171/83
--- NOTE | 2017-03-10 18:23 | NUR ---
RN NOTES PT.'S BLOOD PRESSURE AT 1600 ON RIGHT ARM WAS 171/83, PULSE 92 BPM, RECHECKED 161/101 PULSE 86, MD IS NOTIFIED.
--- NOTE | 2017-03-10 18:34 | NUR ---
RN NOTES NEW ORDERS GIVEN FOR CATAPRES PATCH 0.1MG/24HS.
--- NOTE | 2017-03-10 19:08 | NUR ---
RN CLOSING NOTES PT. IN BED A&OX1, UNCLEAR SPEECH. PT. 'S MOUTH WIDE OPEN. BREATHING ON ROOM AIR UNLABORED. NO S/S OF DISTRESS. IV FLUIDS RUNNING ON 2 IV SITES. BED IS IN LOW, LOCKED POSITION, 2 SIDE RAILS UP, AND CALL LIGHT IS WITHIN REACH. PT. WAS SUCTIONED SEVERAL TIMES TODAY DUE TO SALIVA PRODUCTION. WILL ENDORSE REPORT TO NURSE.
--- NOTE | 2017-03-10 19:25 | NUR ---
MS/RN OPENING NOTES PT RECEIVED, HOB ELEVATED. LALO LEYVA AT BEDSIDE. ON ROOM AIR, BREATHING EVEN AND UNLABORED. NO SOB OR DISTRESS NOTED. NO S/S OF PAIN, PT DENIES. APPEARS COMFORTABLE. AWAITING MEDICAL DPOA FORMS TO BE FAXED IN ORDER TO CONTINUE WITH SURGERY. IV TO LAC AND RFA PATENT AND INTACT RUNNING IVF ORDERED. BED IN LOW/LOCKED POSITION WITH CALL LIGHT IN REACH. SIDE RAILS UPX2. WILL CONTINUE TO MONITOR
[2017-03-10 20:00] VITALS: BP 146/93
[2017-03-11 07:07] LABS: BASOPHILS % (AUTO) 0.1 % (0.0-2.0); HEMATOCRIT 34 % (33-45); HEMOGLOBIN 11.1 g/dL (11.5-14.8); LYMPHOCYTES % (AUTO) 10.8 % (20.0-44.0); MEAN CORPUSCULAR HEMOGLOBIN 25 PG (26.0-33.0); MEAN CORPUSCULAR HGB CONC 32 g/dl (31.0-36.0); MEAN CORPUSCULAR VOLUME 78 fL (82-100); MONOCYTES # (AUTO) 0.9 /CMM (0.1-1.30); MONOCYTES % (AUTO) 9.1 % (2.0-12.0); NEUTROPHILS # (AUTO) 7.7 /CMM (1.8-8.9); PLATELET COUNT (AUTO) 447 /CMM (150-450); RDW COEFFICIENT OF VARIATION 13.5 (11.5-15.0); RED BLOOD CELL COUNT(AUTO) 4.41 MIL/uL (4.0-5.2); WHITE BLOOD COUNT (AUTO) 9.7 K/uL (4.3-11.0)
--- NOTE | 2017-03-11 07:17 | NUR ---
MS/RN CLOSING NOTES PT ASLEEP,EASILY AROUSABLE TO NAME. A/OX2. ON RA, BREATHING EVEN AND UNLABORED. NO S/S OF PAIN, SOB OR DISTRESS. WOUND CARE PROVIDED, TURNED/REPOSITIONED Q2H AND OFFLOADED HEELS. PT REMAINS NPO. IV TO RFA AND LAC PATENT AND INTACT RUNNING IVF ORDERED. MADE PT COMFORTABLE DURING SHIFT. AWAITING MEDICAL DPOA PAPERWORK TO BE FAXED FROM DAUGHTER CHRISTI HERNANDEZ. ONCE FAXED, NOTIFY DR. THORNE TO SCHEDULE SURGERY. OTHERWISE NO CHANGES OVERNIGHT. FREQUENT ORAL CARE/SUCTIONING PROVIDED. BED IN LOW/LOCKED POSITION, CALL LIGHT IN REACH. SIDE RAILS UPX2. WILL ENDORSE TO AM SHIFT AD.
[2017-03-11 07:19] LABS: CALCIUM, SERUM 8.6 mg/dL (8.5-10.1); CARBON DIOXIDE 31 mmol/L (21-32); CHLORIDE 101 mmol/L (98-107); CREATININE 0.5 mg/dL (0.6-1.3); GLUCOSE 133 mg/dL (74-106); PHOSPHORUS 2.1 mg/dL (2.5-4.9); SODIUM SERUM 141 mmol/L (136-145); UREA NITROGEN, BLOOD 4 mg/dL (7-18)
[2017-03-11 07:42] LABS: POTASSIUM 2.8 mmol/L (3.5-5.1)
[2017-03-11 08:00] VITALS: BP_SYST 155; BP_DIAS 82; BP_DIAS 92
--- NOTE | 2017-03-11 08:54 | NUR ---
MS/RN Medications Morning medications held as patient remains NPO as unable to close mouth due to dislocation.
--- NOTE | 2017-03-11 09:15 | NUR ---
MS/RN Labs Labs reviewed: -K+ 2.8 -Phos 2.1 All were made aware to Dr Villela and replaced.
--- NOTE | 2017-03-11 09:30 | NUR ---
MS/RN Morning care / Turn schedule Morning carried provided to patient. Patient will been turned and repositioned every 2-3 hours or as condition allows throughout the shift. Please see QUICK SKETCH ARTIST flow sheet for schedule.
--- NOTE | 2017-03-11 11:00 | NUR ---
MS/customer care manager Sacral woud redressed as ordered with hydrogel and mepilex.
--- NOTE | 2017-03-11 13:30 | NUR ---
MS/RN Dr Bueno Received call from Dr Bueno - surgery has been scheduled for tomorrow at 14:30.
--- NOTE | 2017-03-11 15:36 | NUR ---
MS/RN Consents Per Faye GARCIA, consent forms dated 03/06/17 are still valid for surgical procedure planned for tomorrow.
[2017-03-11 16:00] VITALS: BP 168/94
--- NOTE | 2017-03-11 18:22 | NUR ---
MS/RN End note Patient remains in stable condition, all needs attended. Skin kept clean and dry, sacral wound redressed as ordered. Heels off loaded. Please refer to WINDSHIELD INSTALLER flowsheet for turning schedule. Will endorse to shift nurse manager.
--- NOTE | 2017-03-11 19:45 | NUR ---
MS RN INITIAL NOTES PT IS IN BED SLEEPING, EASILY AROUSED WITH UNCLEAR SPEECH. PT IS NPO, ORAL CARE TO BE RENDERED. PT IS BREATHING EVENLY AND UNLABORED ON ROOM AIR, SO SIGNS OF SOB OR DISTRESS. PT SCHEDULED FOR SURGERY 03/12, CONSENT OBTAINED BY DAYSHIFT. BED IS IN LOW AND LOCKED POSITION, CALL LIGHT WITHIN REACH. WILL CONTINUE TO MONITOR PT
[2017-03-11 20:00] VITALS: BP 152/94
--- NOTE | 2017-03-12 06:27 | NUR ---
MS RN CLOSING NOTES PT IS IN BED RESTING. NO SIGNS OF SOB OR DISTRESS. ORAL CARE WAS COMPLETED. NPO STATUS MAINTAINED. SURGERY SET FOR TODAY AT 1430. ALL NEEDS WERE ANTICIPATED AND MET. WILL ENDORSE TO DAY SHIFT.
[2017-03-12 07:07] LABS: BASOPHILS # (AUTO) 0.1 /CMM (0.0-0.2); BASOPHILS % (AUTO) 0.6 % (0.0-2.0); EOSINOPHILS % (AUTO) 0.1 % (0.0-6.0); HEMATOCRIT 35 % (33-45); HEMOGLOBIN 11.3 g/dL (11.5-14.8); LYMPHOCYTES # (AUTO) 1.3 /CMM (0.8-4.8); LYMPHOCYTES % (AUTO) 9.7 % (20.0-44.0); MEAN CORPUSCULAR HEMOGLOBIN 25 PG (26.0-33.0); MEAN CORPUSCULAR HGB CONC 32 g/dl (31.0-36.0); MEAN CORPUSCULAR VOLUME 78 fL (82-100); MONOCYTES # (AUTO) 1.2 /CMM (0.1-1.30); MONOCYTES % (AUTO) 9.1 % (2.0-12.0); NEUTROPHILS # (AUTO) 10.8 /CMM (1.8-8.9); NEUTROPHILS % (AUTO) 80.5 % (43.0-81.0); PLATELET COUNT (AUTO) 465 /CMM (150-450); RDW COEFFICIENT OF VARIATION 13.6 (11.5-15.0); RED BLOOD CELL COUNT(AUTO) 4.52 MIL/uL (4.0-5.2); WHITE BLOOD COUNT (AUTO) 13.4 K/uL (4.3-11.0)
[2017-03-12 07:23] LABS: CALCIUM, SERUM 8.6 mg/dL (8.5-10.1); CARBON DIOXIDE 35 mmol/L (21-32); CHLORIDE 100 mmol/L (98-107); CREATININE 0.5 mg/dL (0.6-1.3); GLUCOSE 126 mg/dL (74-106); MAGNESIUM 1.9 mg/dL (1.8-2.4); PHOSPHORUS 1.8 mg/dL (2.5-4.9); SODIUM SERUM 139 mmol/L (136-145); UREA NITROGEN, BLOOD 4 mg/dL (7-18)
[2017-03-12 07:36] LABS: POTASSIUM 2.7 mmol/L (3.5-5.1)
--- NOTE | 2017-03-12 07:42 | NUR ---
RN NOTES CALL RECEIVED FROM PHARMACY. PATIENT POTASSIUM IS 2.7. CALLED [facility] FOR OIL SEPARATOR FOR DR COYNE. DR SONG WAS PAGED TO CALL BACK. WILL WAIT FOR RETURN CALL.
[2017-03-12 08:00] VITALS: BP 152/92
--- NOTE | 2017-03-12 08:20 | NUR ---
RN NOTES HOLDING LOVENOX DOSE PATIENT IS TO HAVE SURGERY TODAY. ATTEMPTED SECOND CALL TO [facility] ON POTASSIUM LEVEL 2.7. WAITING FOR RESPONSE.
--- NOTE | 2017-03-12 08:50 | NUR ---
RN NOTES AGAIN CALLED [facility] FOR DIRECTOR OF BUSINESS APPLICATIONS FOR DR COYNE. DR SONG WAS AGAIN PAGED. DIRECTOR OF BUSINESS APPLICATIONS SERVICE ASKED TO HAVE A RETURN CALL IF MD DOES NOT RETURN THE CALL WITHIN 20MINS.
--- NOTE | 2017-03-12 13:00 | NUR ---
RN NOTES CALLED [facility] AND LEFT A MESSAGE FOR THE ANDROID PLATFORM DEVELOPER MD THAT THE PATIENT'S SURGERY IS RESCHEDULED AND WILL NOT BE DONE UNTIL FRIDAY.
--- NOTE | 2017-03-12 13:44 | NUR ---
RN NOTES SPOKE TO DR BAKER. AWARE OF RESCHEDULING OF SURGERY TO FRIDAY. STATES SHE IS GOING TO TRY TO CALL ANOTHER SURGEON TO TAKE ON THE CASE AND GET THE SURGERY DONE SOONER.
[2017-03-12 16:01] VITALS: BP 162/80
--- NOTE | 2017-03-12 19:31 | NUR ---
RN CLOSING NOTES NO SIGNIFICANT CHANGES IN PATIENT CONDITION THROUGHOUT THE SHIFT. NO SOB OR DISTRESS NOTED AT THIS TIME. PATIENT DOES NOT APPEAR TO BE IN PAIN, NO FACIAL GRIMACE NOTED. BED IN A LOW POSITION, CALL LIGHT WITHIN PATIENT REACH. WILL ENDORSE FOR AD.
--- NOTE | 2017-03-12 19:45 | NUR ---
MS/STORE CONSULTANT; RECEIVED PT IN BED ON HIS RT SIDE SLEEPING WITH OPENED MOUTH. HEAD OF BED ELEVATED AT 45 DEGREES. BREATHING NON LABORED. IVF ON PROGRESS BED ON LOWER POSITION AND LOCKED FOR SAFETY. SIDE RAILS ARE UP FOR SAFETY. CONTINUE TO MONITOR.
[2017-03-12 20:00] VITALS: BP 160/74
[2017-03-13] VITALS (9 sets, daily range): BP systolic 110–185; BP diastolic 56–93
--- NOTE | 2017-03-13 06:27 | NUR ---
MS/ OUTER DIAMETER TECHNICIAN; SLEPT AT [facility] INTERVAL LAST NIGHT. IVF ON PROGRESS. REMAINED ON NPO OBSERVED. WILL CONTINUE TO MONITOR. AM CARE DONE BY THE WAX SPECIALIST. TURNED AND REPOSITIONED. WILL ENDORSE TO THE DAY SHIFT NURSE.
--- NOTE | 2017-03-13 07:20 | NUR ---
RN INITIAL NOTES REPORT RECEIVED AT THE BEDSIDE. PATIENT IS RESTING COMFORTABLY IN BED. NO SOB OR DISTRESS NOTED AT THIS TIME. PATIENT DOES NOT APPEAR TO BE IN PAIN, NO FACIAL GRIMACE NOTED. BED IN A LOW POSITION, CALL LIGHT WITHIN PATIENT REACH. PATIENT DUE FOR SURGERY THIS AFTERNOON, WILL PREPARE AND WILL CONTINUE TO MONITOR.
[2017-03-13 07:33] LABS: BASOPHILS # (AUTO) 0.2 /CMM (0.0-0.2); BASOPHILS % (AUTO) 1.1 % (0.0-2.0); EOSINOPHILS % (AUTO) 0.1 % (0.0-6.0); HEMATOCRIT 34 % (33-45); HEMOGLOBIN 10.8 g/dL (11.5-14.8); LYMPHOCYTES # (AUTO) 1.1 /CMM (0.8-4.8); LYMPHOCYTES % (AUTO) 6.5 % (20.0-44.0); MEAN CORPUSCULAR HEMOGLOBIN 25 PG (26.0-33.0); MEAN CORPUSCULAR HGB CONC 32 g/dl (31.0-36.0); MEAN CORPUSCULAR VOLUME 78 fL (82-100); MONOCYTES # (AUTO) 1.4 /CMM (0.1-1.30); MONOCYTES % (AUTO) 8.2 % (2.0-12.0); NEUTROPHILS # (AUTO) 14.4 /CMM (1.8-8.9); NEUTROPHILS % (AUTO) 84.1 % (43.0-81.0); PLATELET COUNT (AUTO) 413 /CMM (150-450); RDW COEFFICIENT OF VARIATION 13.9 (11.5-15.0); RED BLOOD CELL COUNT(AUTO) 4.33 MIL/uL (4.0-5.2); WHITE BLOOD COUNT (AUTO) 17.2 K/uL (4.3-11.0)
[2017-03-13 07:49] LABS: CALCIUM, SERUM 8.4 mg/dL (8.5-10.1); CARBON DIOXIDE 34 mmol/L (21-32); CHLORIDE 101 mmol/L (98-107); CREATININE 0.5 mg/dL (0.6-1.3); GLUCOSE 129 mg/dL (74-106); MAGNESIUM 1.9 mg/dL (1.8-2.4); PHOSPHORUS 1.9 mg/dL (2.5-4.9); SODIUM SERUM 139 mmol/L (136-145); UREA NITROGEN, BLOOD 4 mg/dL (7-18)
[2017-03-13 07:54] LABS: POTASSIUM 2.6 mmol/L (3.5-5.1)
--- NOTE | 2017-03-13 07:57 | NUR ---
RN NOTES CALLED DR COYNE'S OFFICE FOR RETAIL SALES PROFESSIONAL MD. PT POTASSIUM IS 2.6. YESTERDAY DR BAKER ORDERED 4OMEQ. EXCHANGE TO PAGE DR LEW TO CALL BACK.
--- NOTE | 2017-03-13 08:01 | NUR ---
RN NOTES PATIENT HAS HAD TWO EPISODES OF ABNORMAL HEART RHYTHM. TWICE, THE PATIENT HAS DROPPED DOWN TO THE 40S-50S AND THEN SUDDENLY SHOT UP TO THE 120S. THESE EPISODES ONLY LAST A FEW SECONDS. CALLED DR HAVEN MCLAUGHLIN TO INFORM. [facility] TO LEAVE MESSAGE FOR TO CALL. WILL CONTINUE TO MONITOR FOR ABNORMAL RHYTHM. Addendum: 03/13/17 at 0804 by ARNOLDO ESTRADA RN DOCUMENTED ON WRONG PATIENT, DISREGARD NOTE
--- NOTE | 2017-03-13 08:50 | NUR ---
RN NOTES RECEIVED CALL FROM DR BAKER. ORDERED 40MEQ POTASSIUM AND 30MEQ SODIUM PHOS VIA IV STAT. WILL PLACE AND CARRY OUT ORDERS.
--- NOTE | 2017-03-13 13:00 | NUR ---
RECEIVED PT IN BED, RESTING COMFORTABLY. PT ON RA, RESPIRATIONS ARE EVEN AND UNLABORED. PTS MOUTH IS OPEN DUE TO DIAGNOSIS. IV ON RFA INTACT AND PATENT, RUNNING D51/2 NS AND POTASSIUM. SAFETY MEASURES ARE IN PLACE, CALL LIGHT IS IN REACH. WILL CONTINUE TO MONITOR.
--- NOTE | 2017-03-13 13:09 | NUR ---
RN NOTES GAVE REPORT TO KARIME LAMBERT FOR AD. PATIENT RESTING COMFORTABLY IN BED. NO SOB OR DISTRESS AT THIS TIME.
[2017-03-13 14:57] LABS: CALCIUM, SERUM 8.2 mg/dL (8.5-10.1); CARBON DIOXIDE 32 mmol/L (21-32); CHLORIDE 97 mmol/L (98-107); CREATININE 0.4 mg/dL (0.6-1.3); GLUCOSE 137 mg/dL (74-106); PHOSPHORUS 3.2 mg/dL (2.5-4.9); POTASSIUM 3.2 mmol/L (3.5-5.1); SODIUM SERUM 135 mmol/L (136-145); UREA NITROGEN, BLOOD 4 mg/dL (7-18)
--- NOTE | 2017-03-13 15:24 | NUR ---
RN NOTES PT BROUGHT DOWN TO HAVE SURGERY IN STABLE CONDITION.
--- NOTE | 2017-03-13 18:50 | NUR ---
RN NOTES PT IS STILL IN THE OR FOR SURGERY. WILL ENDORSE TO [employer] JOINTER RN WAITING HER RETURN.
--- NOTE | 2017-03-13 19:15 | NUR ---
MS/DOOR CORE ASSEMBLER; RECEIVED PT'S REPRT FROM THE DAY SHIFT RN THAT THE PT STILL IN SURGERY. AWAITING.
--- NOTE | 2017-03-13 20:05 | NUR ---
MS/CRAFT MANAGER; SURGERY CALLED TO THE FLOOR TO GIVE REPORT TO ICU BECAUSE THE PT IS GOING TO ICU.
--- NOTE | 2017-03-13 20:10 | NUR ---
ICU/R-RECEIVED PT. FROM OR S/P CORONOIDECTOMY , VIA BED, ACCOMPANIED BY OR AND PACU CREW PER PROTOCOL. PT. POST SEDATED, ON 10 L SM, UNABLE TO GET SATS.PT EXTREMITIES ARE COLD.PT. RESPIRATIONS NOTED TO BE AGONAL . WILL NOTIFY RT AND WILL DO STAT. ABG.W/ TEMPT-97.8/F. NOTED TO HAVE OCCLUSIVE DRESSING VIA MANDIBULAR AREA, IN CIRCULAR MANNER, DRY AND INTACT. NO BLEEDING NOTED.
--- NOTE | 2017-03-13 20:29 | NUR ---
ICU/RN- STAT ABGS DONE, , W/ RESULTS IN. WILL NOTIFY ANESTHESIA.
--- NOTE | 2017-03-13 20:35 | NUR ---
MS/HARM REDUCTION WORKER; I DID CALL THE ICU UNIT TO GIVE REPORT BUT THE RN WHO IS TAKING CARE OF THIS PT IS ON THE PHONE WITH THE DOCTOR. MARLY SAID TO CALL JOSE L LATER ON. AWAITING FOR THE ICU TO CALL ME FOR REPORT.
--- NOTE | 2017-03-13 20:45 | NUR ---
ICU/ RN.- DR. BAKER, ANESTHESIA NOTIFIED, REQUESTING TO NOTIFY DR. THORNE, FOR POSSIBLE BIPAP PLACEMENT. PT. IS A "DO NOT INTUBATE "STATUS.
--- NOTE | 2017-03-13 20:48 | NUR ---
RN/ICU- DR. THORNE NOTIFIED OF PT. STATUS AND ABGS W/ ORDERS OK TO PUT PT. ON BIPAP AND DR. CALHOUN FOR PULMONARY CONSULT.
--- NOTE | 2017-03-13 21:35 | NUR ---
MS/EVALUATION ADVISOR; AT THIS TIME I WAS ABLE TO SPEAK WITH THE FORGE UTILITY WORKER, JOSE L AND I GAVE HER THE PT'S REPORTS. I TOLHER ALSO THAT THERE IS A MEDICATION STILL TO GIVEN FROM THE DAY SHIFT REPORT WHICH IS SODIUM PHOSPHATE.
--- NOTE | 2017-03-13 23:05 | NUR ---
ICU/RN- PT. BP-185/68, HR-90, RR-22/MIN. SLIGHTLY GRIMACING, 5/10, USING FLACC PAIN SCALE. MEDICATED W/ MORPHINE 2 MG SIVP. WILL REASSESS FOR PRN EFFECTIVENESS.
--- NOTE | 2017-03-13 23:30 | NUR ---
ICU/RN- PT. REMAINS ON BIPAP, NOT IN ANY DISTRESS, ABGS DONE AT 2300, RESULTS DOC. REPORT GIVEN TO Karlos MADDOX RN.
--- NOTE | 2017-03-13 23:55 | NUR ---
CIGAR HEAD PUNCHER: PT TRANSFERRED TO ROOM 256 AND TOLERATED FAIRLY. PLACED ON 10LPM 02 VIA SIMPLE FACE MASK WHILE ON TRANSPORT WT 02 SAT 94%. ABG RESULTED WT p02 131.2 RT RECOMMENDED TO CONTINUE 100% FiO2 AT THIS TIME. NO ACUTE DISTRESS NOTED. NO EVIDENCE OF DISCOMFORT. REMAINED OBTUNDED AND WITHDRAWS TO LOCALIZED PAIN AND WT OPEN EYES. NO ACTIVE BLEEDING ON SURGICAL DRESSING. WILL CONTINUE TO MONITOR.
[2017-03-14] VITALS (81 sets, daily range): BP systolic 77–148; BP diastolic 35–97
--- NOTE | 2017-03-14 02:45 | NUR ---
ENTERPRISE SYSTEMS ARCHITECT: NO SIGNIFICANT AD. RT DECREASED FI02 TO 60% 02 SAT. HAS BEEN 96% AND ABOVE. REMAINED OBTUNDED AND SURGICAL DRESSING REMAINED CLEAN, DRY AND INTACT.
--- NOTE | 2017-03-14 05:00 | NUR ---
AVIATION PROJECT ENGINEER: 02 SAT. NOTED BET. 91-92% FOR 15 MINS. INCREASED FI02 TO 90%. WILL CONTINUE TO MONITOR.
[2017-03-14 05:05] LABS: BASOPHILS % (AUTO) 0.1 % (0.0-2.0); HEMATOCRIT 32 % (33-45); LYMPHOCYTES # (AUTO) 0.7 /CMM (0.8-4.8); LYMPHOCYTES % (AUTO) 2.1 % (20.0-44.0); MEAN CORPUSCULAR HEMOGLOBIN 25 PG (26.0-33.0); MEAN CORPUSCULAR HGB CONC 31 g/dl (31.0-36.0); MEAN CORPUSCULAR VOLUME 79 fL (82-100); MONOCYTES # (AUTO) 0.6 /CMM (0.1-1.30); MONOCYTES % (AUTO) 1.9 % (2.0-12.0); NEUTROPHILS # (AUTO) 30.2 /CMM (1.8-8.9); NEUTROPHILS % (AUTO) 95.9 % (43.0-81.0); PLATELET COUNT (AUTO) 361 /CMM (150-450); RDW COEFFICIENT OF VARIATION 14.4 (11.5-15.0); RED BLOOD CELL COUNT(AUTO) 4.02 MIL/uL (4.0-5.2)
--- NOTE | 2017-03-14 05:20 | NUR ---
INSTRUCTOR TAP DANCING: RECEIVED WBC=31.5. PT IS ON DECADRON. AFEBRILE THROUGHOUT THE SHIFT. ON CLEOCIN AND BEING SEEN BY ID. WILL ENDORSE TO DAY SHIFT TO FOLLOW UP WT . JOSE L CHARGE NURSE MADE AWARE AND AGREED.
[2017-03-14 05:22] LABS: WHITE BLOOD COUNT (AUTO) 31.5 K/uL (4.3-11.0)
[2017-03-14 05:32] LABS: CARBON DIOXIDE 34 mmol/L (21-32); CHLORIDE 101 mmol/L (98-107); CREATININE 0.8 mg/dL (0.6-1.3); GLUCOSE 160 mg/dL (74-106); MAGNESIUM 1.7 mg/dL (1.8-2.4); PHOSPHORUS 7.6 mg/dL (2.5-4.9); POTASSIUM 3.7 mmol/L (3.5-5.1); SODIUM SERUM 138 mmol/L (136-145); UREA NITROGEN, BLOOD 9 mg/dL (7-18)
[2017-03-14 06:04] LABS: BAND % (MANUAL) 7 % (0.0-5.0); LYMPHOCYTES % (MANUAL) 3 % (16-48); MONOCYTES % (MANUAL) 8 % (0-11.0); NEUTROPHILS % (MANUAL) 82 (42-76)
[2017-03-14 06:04] LABS: ABG BASE EXCESS 1.4 mmol/L; ABG OXYGEN SATURATION 97.7 % (92.0-98.5); ABG PH 7.241 (7.350-7.450); ABG PO2 131.2 mmHg (75.0-100.0); AaDO2 509.8 mmHg; COHb 0.3 % (0.5-1.5); MetHb 0.6 % (0.0-1.5); O2Hb 96.8 % (94.0-97.0); PEEP,BG 5 cm H2O; SITE, ABG Left Radial; VENT MODE, BG ST-BIPAP
[2017-03-14 06:08] LABS: ABG BASE EXCESS 3.6 mmol/L; ABG OXYGEN SATURATION 83.5 % (92.0-98.5); ABG PCO2 86.8 mmHg (35.0-45.0); ABG PH 7.208 (7.350-7.450); ABG PO2 60.8 mmHg (75.0-100.0); AaDO2 271.5 mmHg; COHb 0.1 % (0.5-1.5); MetHb 0.7 % (0.0-1.5); O2Hb 82.8 % (94.0-97.0); SITE, ABG Left Radial; VENT MODE, BG SIMPLE MASK
--- NOTE | 2017-03-14 06:30 | NUR ---
STONE SPLITTER: REMAINED OBTUNDED, WITHDRAWS TO LOCALIZED PAIN. TOLERATING BIPAP SETTINGS ORDERED WT 02 SAT 94% AND ABOVE. SURGICAL DRESSING REMAINED CLEAN, DRY AND INTACT. VS WITHIN HER BASELINE.
--- NOTE | 2017-03-14 08:00 | NUR ---
COUNSELING CENTER DIRECTOR: pt.is lethargic, can open eyes by pain stimuli, no BULE activity, no any tracking contact, SR, MAP over 65, O2 sat. WNL, FiO2 75%, Bipap, resp.acidosis, unable to remove Bipap mask for PO now, 22 PIVL, will call for midline, WBC 31/will s/w
--- NOTE | 2017-03-14 09:45 | NUR ---
SPLIT AND DRUM ROOM SUPERVISOR: updated with pt.current/neuro status, labs/WBC 31, VS, I/O, IVF, ABG/pt.is contin.Bipap on, pt.is lethargic, hold PO meds, said: ok to place in F/c, send urine c/s, switch PO Protonix to IV, change IVF for D5NS, see new orders
--- NOTE | 2017-03-14 12:45 | NUR ---
ICU/RN - Notes Pt orally intubated by anesthesiologist Dr Villela at bedside. RT at bedside, placed pt on mechanical vent with settings as ordered.
--- NOTE | 2017-03-14 13:25 | NUR ---
ICU/RN - Notes Dr Khris So at bedside for PICC line insertion.
--- NOTE | 2017-03-14 14:00 | NUR ---
ICU/RN - Notes Eagle catheter inserted as ordered. Urine specimen collected and sent to lab.
--- NOTE | 2017-03-14 14:30 | NUR ---
ICU/RN - Notes Pt hypotensive BP 78/53. Received orders to give 500mL NS bolus. Order carried out.
[2017-03-14 14:51] LABS: APPEARANCE,URINE SL CLOUDY (CLEAR); BILIRUBIN,URINE NEGATIVE (NEGATIVE); BLOOD, URINE 1+ Ery/uL (NEGATIVE); COLOR,URINE YELLOW (YELLOW); KETONES,URINE NEGATIVE (NEGATIVE); LEUKOCYTE ESTERASE ,URINE NEGATIVE (NEGATIVE); NITRITE, URINE NEGATIVE (NEGATIVE); PROTEIN,URINE 1+ mg/dl (NEGATIVE); UGLUCOSE NEGATIVE (NEGATIVE)
[2017-03-14 15:14] LABS: BACTERIA,URINE FEW /HPF (None Seen)
[2017-03-14 15:14] LABS: ABG BASE EXCESS 4.2 mmol/L; ABG OXYGEN SATURATION 99.4 % (92.0-98.5); ABG PCO2 45.6 mmHg (35.0-45.0); ABG PH 7.423 (7.350-7.450); AaDO2 257.4 mmHg; COHb 0.3 % (0.5-1.5); MetHb 0.5 % (0.0-1.5); O2Hb 98.6 % (94.0-97.0); SITE, ABG Right Brachial; VENT MODE, BG AC 14 500 100% +5
[2017-03-14 15:15] LABS: SQUAMOUS EPITHELIAL CELL,UR FEW /HPF (None Seen)
--- NOTE | 2017-03-14 18:08 | NUR ---
ICU/RN - Notes Pt hypotensive with sBP 80-90's. Dr Lake made aware. Received new orders to give 500mL bolus, then NS @ 125mL/HR, and to dc PEEP. RT made aware. Will carry out MD orders.
--- NOTE | 2017-03-14 19:30 | NUR ---
SENIOR UI SOFTWARE ENGINEER: RECEIVED PT ORALLY INTUBATED AND TOLERATING VENT SETTINGS ORDERED. 02 SAT 100%, NO EVIDENCE OF DISCOMFORT. RESPONSIVE TO PAINFUL STIMULI EVIDENCE BY FACIAL GRIMACE. SEDATED ON DIPRIVAN AT 10MCG/KG/MIN. CONTINUE NS AT 125ML/HR WT MINIMAL ARMIDA COLORED URINE ON MEZA CATHETER. SR ON TAR ROOFER. NO HYPOTENSION NOTED AT THIS TIME. ORAL TEMP=99 WT COOLING MEASURES. SURGICAL DRESSING AROUND FACE DRY, CLEAN AND INTACT. HOB AT 35 DEGREES. WILL CONTINUE TO MONITOR.
--- NOTE | 2017-03-14 23:30 | NUR ---
OSTEOPATHIC PHYSICIAN: EYES OPEN SPONTANEOUSLY BUT UNABLE TO FOLLOW COMMANDS. NO ACUTE DISTRESS, NO EVIDENCE OF DISCOMFORT. COOLING MEASURES WT GOOD EFFECT TEMP NOW AT 98.7.
[2017-03-15] VITALS (32 sets, daily range): BP systolic 96–130; BP diastolic 49–76
--- NOTE | 2017-03-15 04:15 | NUR ---
RAIMANN MACHINE OPERATOR: PT NEURO STATUS MUCH IMPROVED SHE WAS ABLE TO BE MORE ALERT, EYES TRACK AND ABLE TO FOLLOW SIMPLE COMMANDS SUCH "CLOSE YOUR EYES" AND "SQUEEZE MY HAND". BED BATH GIVEN AND TOLERATED FAIRLY. VS WITHIN HER BASELINE.
[2017-03-15 05:04] LABS: HEMATOCRIT 25 % (33-45); HEMOGLOBIN 8.1 g/dL (11.5-14.8); LYMPHOCYTES # (AUTO) 0.7 /CMM (0.8-4.8); LYMPHOCYTES % (AUTO) 4.1 % (20.0-44.0); MEAN CORPUSCULAR HEMOGLOBIN 25 PG (26.0-33.0); MEAN CORPUSCULAR HGB CONC 33 g/dl (31.0-36.0); MEAN CORPUSCULAR VOLUME 77 fL (82-100); MONOCYTES # (AUTO) 0.5 /CMM (0.1-1.30); NEUTROPHILS # (AUTO) 15.6 /CMM (1.8-8.9); NEUTROPHILS % (AUTO) 92.9 % (43.0-81.0); PLATELET COUNT (AUTO) 367 /CMM (150-450); RED BLOOD CELL COUNT(AUTO) 3.22 MIL/uL (4.0-5.2); WHITE BLOOD COUNT (AUTO) 16.8 K/uL (4.3-11.0)
[2017-03-15 05:15] LABS: CALCIUM, SERUM 7.3 mg/dL (8.5-10.1); CHLORIDE 104 mmol/L (98-107); CREATININE 1.2 mg/dL (0.6-1.3); GLUCOSE 108 mg/dL (74-106); MAGNESIUM 2.2 mg/dL (1.8-2.4); PHOSPHORUS 3.6 mg/dL (2.5-4.9); SODIUM SERUM 142 mmol/L (136-145); UREA NITROGEN, BLOOD 17 mg/dL (7-18)
[2017-03-15 05:34] LABS: CARBON DIOXIDE 26 mmol/L (21-32)
[2017-03-15 05:36] LABS: POTASSIUM 2.7 mmol/L (3.5-5.1)
[2017-03-15 05:56] LABS: BAND % (MANUAL) 5 % (0.0-5.0); LYMPHOCYTES % (MANUAL) 5 % (16-48); MONOCYTES % (MANUAL) 4 % (0-11.0); NEUTROPHILS % (MANUAL) 86 (42-76)
--- NOTE | 2017-03-15 06:25 | NUR ---
SKIN CARE INSTRUCTOR:STILL AWAITING FOR DR. WEBB TO CALL BACK TO RELAY K=2.7. NO SIGNIFICANT AD. REMAINED SEDATED ON DIPRIVAN AT 10MCG/KG/MIN AND ABLE TO FOLLOW SIMPLE COMMANDS. WILL CONTINUE TO MONITOR.
--- NOTE | 2017-03-15 07:05 | NUR ---
MEDICAL SOCIOLOGIST: STILL AWAITING FOR MD TO CALL BACK FOR K=2.7. ENDORSED TO KARIME HINES FOR CONTINUITY OF CARE.
--- NOTE | 2017-03-15 07:30 | NUR ---
VECTOR CONTROL ASSISTANT RECEIVED PATIENT ON DIPRIVAN SEDATION ON MECHANICAL VENTILATORY SUPPORT 100% OPEN EYES GRASPING NOTED MAINTAINED ON IV FLUID MEZA CATHETER DRAINING TO DARK YELLOW URINE SMALL IN AMOUNT ENDORSED
[2017-03-15 09:41] LABS: ABG BASE EXCESS 1.8 mmol/L; ABG OXYGEN SATURATION 97.3 % (92.0-98.5); ABG PCO2 30.8 mmHg (35.0-45.0); ABG PH 7.518 (7.350-7.450); ABG PO2 96.6 mmHg (75.0-100.0); AaDO2 225.3 mmHg; COHb 0.3 % (0.5-1.5); MetHb 0.9 % (0.0-1.5); O2Hb 96.1 % (94.0-97.0); SITE, ABG Right Brachial; VT, ABG 500 mL
--- NOTE | 2017-03-15 19:52 | NUR ---
GRAIN SAMPLER: CU RN: RECEIVED PT ORALLY INTUBATED AND TOLERATING VENT SETTINGS ORDERED. 02 SAT 100%, NO EVIDENCE OF DISCOMFORT. RESPONSIVE TO PAINFUL STIMULI EVIDENCE BY FACIAL GRIMACE. SEDATED ON DIPRIVAN AT 15MCG/KG/MIN. CONTINUE NS AT 50 ML/HR WT MINIMAL ARMIDA COLORED URINE ON MEZA CATHETER. SR ON CLOCK AND WATCH HANDS DIPPER. NO HYPOTENSION NOTED AT THIS TIME. AFEBRILE., CLEAN AND INTACT. HOB AT 35 DEGREES. WILL CONTINUE TO MONITOR.
--- NOTE | 2017-03-15 22:31 | NUR ---
VIDEO OPERATOR' ENDORSED CARE TO LAURY/KARIME, MADE AWARE ALL ORDERS, PT ON DIPRIVAN RUNNING AT15 MCG/KG/MIN, ON VENT, CURRENT SETTING TOLERATING WELL. V/S STABLE.
--- NOTE | 2017-03-15 23:04 | NUR ---
RN;ICU: PT RECEIVED IN BED ON VENT. PT OPENING EYES AND REACHING FOR ETT. DIPRIVAN INCREASED FROM 15MCG/KG/MIN TO 20 MCG/KG/MIN. NO ACUTE DISTRESS NOTED. WILL CONTINUE TO MONITOR CLOSELY.
[2017-03-16] VITALS (35 sets, daily range): BP systolic 97–143; BP diastolic 55–119
--- NOTE | 2017-03-16 01:34 | NUR ---
RN:ICU: PT CONTINUES TO GRIMACE AND REACH FOR ETT DESPITE INCREASING DIPRIVAN PER PROTOCOL TO 20MCG/KG/MIN. DIPRIVAN INCREASED TO 25MCG/KG/MIN TO ENSURE SAFETY AND PT COMFORT. WILL CONTINUE TO MONITOR CLOSELY.
--- NOTE | 2017-03-16 01:56 | NUR ---
RN:ICU: PT MEDICATED FOR PAIN PRIOR TO BED BATH. WILL CONTINUE TO MONITOR CLOSELY.
[2017-03-16 05:02] LABS: BASOPHILS % (AUTO) 0.1 % (0.0-2.0); EOSINOPHILS % (AUTO) 0.1 % (0.0-6.0); HEMATOCRIT 24 % (33-45); HEMOGLOBIN 7.8 g/dL (11.5-14.8); LYMPHOCYTES # (AUTO) 0.8 /CMM (0.8-4.8); LYMPHOCYTES % (AUTO) 7.4 % (20.0-44.0); MEAN CORPUSCULAR HEMOGLOBIN 25 PG (26.0-33.0); MEAN CORPUSCULAR HGB CONC 32 g/dl (31.0-36.0); MEAN CORPUSCULAR VOLUME 77 fL (82-100); MONOCYTES # (AUTO) 0.2 /CMM (0.1-1.30); MONOCYTES % (AUTO) 1.8 % (2.0-12.0); NEUTROPHILS # (AUTO) 9.8 /CMM (1.8-8.9); NEUTROPHILS % (AUTO) 90.6 % (43.0-81.0); PLATELET COUNT (AUTO) 376 /CMM (150-450); RDW COEFFICIENT OF VARIATION 14.8 (11.5-15.0); RED BLOOD CELL COUNT(AUTO) 3.15 MIL/uL (4.0-5.2); WHITE BLOOD COUNT (AUTO) 10.9 K/uL (4.3-11.0)
[2017-03-16 05:15] LABS: CALCIUM, SERUM 7.6 mg/dL (8.5-10.1); CARBON DIOXIDE 26 mmol/L (21-32); CHLORIDE 109 mmol/L (98-107); CREATININE 0.8 mg/dL (0.6-1.3); GLUCOSE 61 mg/dL (74-106); PHOSPHORUS 2.1 mg/dL (2.5-4.9); POTASSIUM 3.2 mmol/L (3.5-5.1); SODIUM SERUM 142 mmol/L (136-145); UREA NITROGEN, BLOOD 18 mg/dL (7-18)
--- NOTE | 2017-03-16 05:28 | NUR ---
RN:ICU: PT CONDITION REMAINS UNCHANGED. PT APPEARS TO BE WELL SEDATED AND COMFORTABLE AFTER MORPHINE ADMIN AND WITH DIPRIVAN RUNNING AT 25MCG/KG/MIN. WILL CONTINUE TO MONITOR CLOSELY.
--- NOTE | 2017-03-16 06:54 | NUR ---
RN:ICU: PT BS NOTED TO BE 61 ON AM CHEMISTRY. FINGER STICK PERFORMED AND SHOWING 57. ORANGE JUICE WITH SUGAR GIVEN VIA OGT. NEW ORDERS RECEIVED TO CHANGE MAIN IVF TO D5NS AT 50ML/HR. BLOOD SUGAR RECHECKED AND IS 95. WILL ENDORSED TO ONCOMING SHIFT. VSS.
--- NOTE | 2017-03-16 08:30 | NUR ---
RT PATIENT PLACED ON SIMV WEANING MODE PER DR CALHOUN ORDER. VENT ALARMS CHECKED + AUDIBLE. SX'D WITH SMALL/MOD AMT RUBY SEMITHICK SECRETIONS. B/S DIM. Addendum: 03/16/17 at 1116 by TORI ROTH RT Amended: Links added.
[2017-03-16 08:35] LABS: ABG BASE EXCESS 1.9 mmol/L; ABG OXYGEN SATURATION 97.1 % (92.0-98.5); ABG PCO2 32.8 mmHg (35.0-45.0); ABG PO2 95.1 mmHg (75.0-100.0); AaDO2 152.4 mmHg; COHb 0.1 % (0.5-1.5); MetHb 0.6 % (0.0-1.5); O2Hb 96.4 % (94.0-97.0); PEEP,BG 0 cm H2O; SITE, ABG Left Radial
--- NOTE | 2017-03-16 09:00 | NUR ---
Patient vent setting placed on SIMV mode. Off sedation since 849. Currently opens eyes, minimal movement of extremities.
[2017-03-16 11:02] LABS: ABG BASE EXCESS 0.8 mmol/L; ABG OXYGEN SATURATION 95.9 % (92.0-98.5); ABG PCO2 31.7 mmHg (35.0-45.0); ABG PH 7.494 (7.350-7.450); ABG PO2 81.1 mmHg (75.0-100.0); AaDO2 167.6 mmHg; COHb 0.3 % (0.5-1.5); MetHb 0.7 % (0.0-1.5); O2Hb 94.9 % (94.0-97.0); PEEP,BG 5 cm H2O; SITE, ABG Left Radial; VT, ABG 450 mL
--- NOTE | 2017-03-16 11:15 | NUR ---
RT PER DR CALHOUN PATIENT MAY REMAIN ON SIMV MODE. PLACE BACK ON AC FOR DISTRESS. Addendum: 03/16/17 at 1116 by TORI ROTH RT Amended: Links added.
--- NOTE | 2017-03-16 19:30 | NUR ---
COMPLAINT SUPERVISOR RCD PT AWAKE ON BL SOFT WRIST RESTRAINTS; ABLE TO FOLLOW SIMPLE COMMANDS. NSR ON MONITOR. PT ON SIMV MODE AT THIS TIME. TOLERATING WELL. PT NOTED WITH DRY TONGUE; ORAL CARE RENDERED. CONTINUE TO MONITOR.
--- NOTE | 2017-03-16 22:18 | NUR ---
BUNDLE PERSON ORAL CARE RENDERED. PT REPOSITIONED. CONTINUES ON SIMV.
[2017-03-17] VITALS (28 sets, daily range): BP systolic 115–160; BP diastolic 60–112
--- NOTE | 2017-03-17 02:10 | NUR ---
BURIAL VAULT SETTER COMPLETE BED BATH RENDERED. BL SOFT WRIST RESTRAINTS REMAIN IN PLACE PT IS NOTED TO REACH FOR ET TUBE. CONTINUE TO MONITOR.
[2017-03-17 05:02] LABS: EOSINOPHILS % (AUTO) 0.1 % (0.0-6.0); HEMATOCRIT 23 % (33-45); HEMOGLOBIN 7.5 g/dL (11.5-14.8); LYMPHOCYTES # (AUTO) 0.7 /CMM (0.8-4.8); LYMPHOCYTES % (AUTO) 7.3 % (20.0-44.0); MEAN CORPUSCULAR HEMOGLOBIN 25 PG (26.0-33.0); MEAN CORPUSCULAR HGB CONC 32 g/dl (31.0-36.0); MEAN CORPUSCULAR VOLUME 78 fL (82-100); MONOCYTES # (AUTO) 0.4 /CMM (0.1-1.30); MONOCYTES % (AUTO) 4.2 % (2.0-12.0); NEUTROPHILS # (AUTO) 8.2 /CMM (1.8-8.9); NEUTROPHILS % (AUTO) 88.4 % (43.0-81.0); PLATELET COUNT (AUTO) 320 /CMM (150-450); RDW COEFFICIENT OF VARIATION 14.9 (11.5-15.0); RED BLOOD CELL COUNT(AUTO) 3.01 MIL/uL (4.0-5.2); WHITE BLOOD COUNT (AUTO) 9.2 K/uL (4.3-11.0)
[2017-03-17 05:15] LABS: TRIGLYCERIDES 66 mg/dL (30-150)
[2017-03-17 05:18] LABS: CALCIUM, SERUM 7.1 mg/dL (8.5-10.1); CARBON DIOXIDE 25 mmol/L (21-32); CHLORIDE 114 mmol/L (98-107); CREATININE 0.7 mg/dL (0.6-1.3); GLUCOSE 306 mg/dL (74-106); MAGNESIUM 1.7 mg/dL (1.8-2.4); PHOSPHORUS 1.8 mg/dL (2.5-4.9); POTASSIUM 5.4 mmol/L (3.5-5.1); SODIUM SERUM 144 mmol/L (136-145); UREA NITROGEN, BLOOD 13 mg/dL (7-18)
--- NOTE | 2017-03-17 05:31 | NUR ---
NANNY BABYSITTER CALLED PLACED TO LAB TO REDRAW BMP.
[2017-03-17 05:43] LABS: BAND % (MANUAL) 1 % (0.0-5.0); LYMPHOCYTES % (MANUAL) 11 % (16-48); MONOCYTES % (MANUAL) 5 % (0-11.0); NEUTROPHILS % (MANUAL) 83 (42-76)
[2017-03-17 05:59] LABS: CALCIUM, SERUM 7.6 mg/dL (8.5-10.1); CARBON DIOXIDE 25 mmol/L (21-32); CHLORIDE 113 mmol/L (98-107); CREATININE 0.8 mg/dL (0.6-1.3); GLUCOSE 174 mg/dL (74-106); POTASSIUM 4.1 mmol/L (3.5-5.1); SODIUM SERUM 145 mmol/L (136-145); UREA NITROGEN, BLOOD 14 mg/dL (7-18)
--- NOTE | 2017-03-17 06:48 | NUR ---
GENERAL SURGERY PHYSICIAN ASSISTANT PT TOLERATED SIMV THROUGHOUT THE NIGHT.
--- NOTE | 2017-03-17 07:35 | NUR ---
FLUX CORE WELDER RECEIVED PATIENT FROM THE PREVIOUS SHIFT. PATIENT IS IN BED. RESTING COMFORTABLY. SIMV MODE ON THE VENT. ABLE TO FOLLOW COMMANDS. ORAL SUCTION PROVIDED FOR CLEARANCE. TEMP 100.0. TURNED AND REPOSITIONED FOR COMFORT AND WOUND PREVENTION. WILL CONTINUE TO MONITOR AND PROVIDE CARE.
[2017-03-17 09:45] LABS: ABG BASE EXCESS 0.3 mmol/L; ABG OXYGEN SATURATION 97.9 % (92.0-98.5); ABG PCO2 31.9 mmHg (35.0-45.0); ABG PH 7.481 (7.350-7.450); ABG PO2 117.4 mmHg (75.0-100.0); AaDO2 131.1 mmHg; COHb 0.3 % (0.5-1.5); MetHb 0.7 % (0.0-1.5); O2Hb 96.9 % (94.0-97.0); SITE, ABG Right Radial; VENT MODE, BG SIMV 4 PSV 12
--- NOTE | 2017-03-17 10:01 | NUR ---
CABLE REPAIRER PATIENT EXTUBATED PER MD ORDER. MD AT BEDSIDE. NO DISTRESS. ORAL SUCTION FOR CLEARANCE. WILL CONTINUE TO MONITOR.
--- NOTE | 2017-03-17 15:30 | NUR ---
MOVING WORKER DR. CALHOUN AWARE PATIENT IS UNABLE TO EAT. NPO DIAGNOSIS RECEIVED. RECEIVED MD RECOMMENDATIONS TO HOLD ALL PO MEDS.
[2017-03-17 15:59] LABS: ABG BASE EXCESS 2.4 mmol/L; ABG PCO2 36.9 mmHg (35.0-45.0); ABG PH 7.467 (7.350-7.450); ABG PO2 73.6 mmHg (75.0-100.0); AaDO2 169.2 mmHg; COHb 0.3 % (0.5-1.5); MetHb 0.5 % (0.0-1.5); O2Hb 94.2 % (94.0-97.0); SITE, ABG Right Radial
--- NOTE | 2017-03-17 19:37 | NUR ---
RAILROAD SIGNAL TECHNICIAN. INITIAL ASSESSMENT. RECEIVED THE PT REST ON THE BED. AWAKE, ALERT, FOLLOW [id number]. PT IS LETHARGIC. OXYGEN 5L VIA MASK. SAT 99%. MOBILE APPLICATION ENGINEER SHOWING AT THIS TIME NSR. IV LT UPPER ARM PICC LINE. IVF D5NSIN 40 MEQ POTASSIUM 70ML/H. HOB ELEVATED. TURN AND REPOSITION Q2H. FC PATENT. URINE DRAINING. MOUTH IS OPEN, PT HAS LOT OF SECRETIONS.WILL CONTINUE TO MONITOR VITALS.
[2017-03-17 23:04] LABS: ABG BASE EXCESS 0.3 mmol/L; ABG OXYGEN SATURATION 96.4 % (92.0-98.5); ABG PH 7.335 (7.350-7.450); ABG PO2 94.6 mmHg (75.0-100.0); AaDO2 422.3 mmHg; COHb 0.3 % (0.5-1.5); MetHb 0.7 % (0.0-1.5); O2Hb 95.4 % (94.0-97.0); VENT MODE, BG NRB 15L
[2017-03-18] VITALS (21 sets, daily range): BP systolic 76–187; BP diastolic 37–117
--- NOTE | 2017-03-18 00:32 | NUR ---
COMBINATION WORKER. PT DESATURATED. 77 %. NON RE BREATHER PLACED.WILL CONTINUE TO MONITOR.
[2017-03-18 00:57] LABS: ABG BASE EXCESS 12.4 mmol/L; ABG OXYGEN SATURATION 96.2 % (92.0-98.5); ABG PCO2 40.1 mmHg (35.0-45.0); ABG PH 7.567 (7.350-7.450); ABG PO2 69.6 mmHg (75.0-100.0); AaDO2 241.8 mmHg; COHb 2.2 % (0.5-1.5); MetHb 0.4 % (0.0-1.5); O2Hb 93.7 % (94.0-97.0); PEEP,BG 5 cm H2O; SITE, ABG Left Radial; VENT MODE, BG AC 20 500 50% +5; VT, ABG 500 mL
--- NOTE | 2017-03-18 01:00 | NUR ---
BACK HANGER MAISHA 2H RT NAHOMI SUCTION GIVEN.
--- NOTE | 2017-03-18 03:26 | NUR ---
LIQUOR GRINDER MILL OPERATOR AM CARE. ORAL CARE, BED BATH GIVEN. LINEN CHANGED. REMAINING SAME OXYGEN NON RE BREATHERTOLERATED WELL. SAT 99%. MONEY COUNTER SHOWING NSR. IV LT UPPER ARM PICC LINE. IVF D5NS IN 40MEQ POTASSIUM 70ML/H. HOB ELEVATED, TEMPERATURE 99. FC PATENT. URINE DRAINING. TURN AND REPOSITION Q2H. WILL CONTINUE TO MONITOR VITALS.
--- NOTE | 2017-03-18 04:18 | NUR ---
FOUNDER. PT DESATURATED, SUCTION DONE. ABG STAT DONE.
[2017-03-18 04:36] LABS: ABG BASE EXCESS -1.5 mmol/L; ABG OXYGEN SATURATION 98.2 % (92.0-98.5); ABG PCO2 49.6 mmHg (35.0-45.0); ABG PH 7.318 (7.350-7.450); ABG PO2 153.1 mmHg (75.0-100.0); AaDO2 365.2 mmHg; COHb 0.3 % (0.5-1.5); MetHb 0.5 % (0.0-1.5); O2Hb 97.4 % (94.0-97.0); SITE, ABG Right Radial; VENT MODE, BG NRB 15L
--- NOTE | 2017-03-18 05:05 | NUR ---
DIETETIC ASSISTANT. AROUND 0505 PT DESATURATED 77. HEART RATE 45. S JEROME, CALLED ER MD. FOR INTUBATION. SPOKE WITH MORTISING MACHINE OPERATOR. HOLDING PHONE. MY [address] MAINTENANCE SUPERVISOR SHAWN CALLED AGAIN AND SPOKE WITH MORTISING MACHINE OPERATOR FOR STAT INTUBATION. WAITING FOR
[2017-03-18 05:16] LABS: CALCIUM, SERUM 7.9 mg/dL (8.5-10.1); CARBON DIOXIDE 27 mmol/L (21-32); CHLORIDE 114 mmol/L (98-107); CREATININE 0.6 mg/dL (0.6-1.3); GLUCOSE 148 mg/dL (74-106); MAGNESIUM 2.2 mg/dL (1.8-2.4); POTASSIUM 4.5 mmol/L (3.5-5.1); SODIUM SERUM 147 mmol/L (136-145); UREA NITROGEN, BLOOD 12 mg/dL (7-18)
--- NOTE | 2017-03-18 05:43 | NUR ---
PT INTUBATED POST CPR MIST IN THE TUBE, POSITIVE COLOR CHANGE ON CO2 DETECTOR, BILATERAL BREATH SOUNDS PT PLACED ON VENT VIA ETT 7.5@27CM POST CPR, AC 18 450 40% +5 AMBU BAG AT BEDSIDE ALARMS SET AND AUDIBLE. VENT PLUGGED IN TO RED OUTLET SUCTIONED A LARGE AMOUNT OF THICK RUBY SECRETIONS BREATH SOUNDS BILATERAL. Addendum: 03/18/17 at 0547 by NAHOMI DECKER RT Amended: Links added.
--- NOTE | 2017-03-18 05:58 | NUR ---
ASSOCIATE ART DIRECTOR. PT AROUND 0515 MONITOR SHOWING PEA. ACTIVATED CODE BLUE CPR STARTED,ACLS PROTOCOL INITIATED. ER MD CAME AT 0517 . INTUBATED.THE PT . SEE CODE BLUE SHEET. ETT 7.5CM, LIP 28CMS,AC 18,TV 450, FIO2 40%, PEEP 5. PULSE BACK AT 0521. ER MD ORDERED DIPRIVAN.
[2017-03-18 06:19] LABS: ABG BASE EXCESS -0.7 mmol/L; ABG OXYGEN SATURATION 92.3 % (92.0-98.5); ABG PCO2 39.6 mmHg (35.0-45.0); ABG PO2 67.2 mmHg (75.0-100.0); AaDO2 172.5 mmHg; COHb 0.3 % (0.5-1.5); MetHb 0.9 % (0.0-1.5); O2Hb 91.2 % (94.0-97.0); PEEP,BG 5 cm H2O; SITE, ABG Left Radial; VT, ABG 450 mL
--- NOTE | 2017-03-18 06:31 | NUR ---
THREAD LASTER. CALLED PT LALO ABEL. AROUND 0500 NO ANSWER, WE CALLED AGAIN PT DAUGHTER CHRISTI. PT CONDITION EXPLAINED SHE SAID IF PT NEED OK TO INTUBATE.
--- NOTE | 2017-03-18 06:38 | NUR ---
BASS GUITAR TEACHER. DR MIX MADE AWARE PT INTUBATED.
--- NOTE | 2017-03-18 06:43 | NUR ---
TELEVISION OPERATOR. DIPRIVAN 40MG BOLUS GIVEN PER ER MD VEGA.THEN STARTED PER PROTOCOL
--- NOTE | 2017-03-18 06:50 | NUR ---
PHOTO TECHNOLOGIST. PT AGITATED SHARAN SOFT WRIST RESTRAINT INITIATED
--- NOTE | 2017-03-18 10:05 | NUR ---
ONLINE PRODUCER NOTE 0720: Received patient sedated. With ETT to vent, tolerated settings at this time. No respiratory distress noted at this time. MARCIAL PICC intact, on Diprivan @ 15. SR 90's on the monitor. Eagle cath intact, noted with clear yellow urine drained to BSD. BATCH OPERATOR restraints on for safety. 0800: Spoke with son via phone and aware for the patient's condition, on the way to hospital. 0930: S/E by Dr. Lake, made Md aware patient has noted facial grimace and moving hands without sedation. Able to squeeze her hands but does not follow commands. 1000: Erasto son at bedside, spoke with Dr. Lake and discussed re: the POC, son wanting the patient's ETT out. MD verbalized to turn off Diprivan for an hour and he will reassess for need of Morphine order. Verbalized understanding.
--- NOTE | 2017-03-18 11:27 | NUR ---
COMFORT CARE RN NOTE 1100: Morphine given as ordered. Patient comfortable at this time. 1120: Extubated patient as ordered. Son at bedside, aware for the procedure. 1127: Son back at bedside, O2 sat 79% HR 50's.
--- NOTE | 2017-03-18 12:30 | NUR ---
[facility] RN NOTE 1150: Noted patient n pulse appreciated, no pupils reaction. No Heartbeat noted during auscultation. Son at bedside, Charge nurse Harish RN pronounced time of 1150. 1200: made aware for patient 's expiration. 1200: Spoke with Radha from [facility] and closed case for age >80, with . Nurse iban made aware. Son called [facility] and wating to be arrived in one hour. Given privacy to son and offered self.
--- NOTE | 2017-03-18 13:18 | NUR ---
LATE ENTRY 1150: PRONOUNCEMENT PT WAS A COMFORT CARE, CODE STATUS. NO AUDIBLE HEART TONES, NO BILATERAL BREATH SOUNDS, NO PALPABLE PULSES. PUPILS FIXED AND DILATED AT 5MM. PTS SON AT BEDSIDE. SUPPORT GIVEN.
--- NOTE | 2017-03-18 14:00 | NUR ---
Picked up body by [facility] with 2 personnels, accompanied by hospital social security benefits interviewer. Son at bedside, signed release of body.
== END 2017-03-18 11:50 | disposition expired | DRG 129 ==
LOC: ER 22:56 → MEDSG2 03-06 05:26 → MED 03-09 00:45 → ICU 03-13 20:10
PROVIDERS: ADMIT Internal Medicine; ATTEND Internal Medicine
PROC: 0NBT0ZZ Excision of Right Mandible, Open Approach (ICD-10-PCS; 2017-03-13)
PROC: 0RS Upper Joints, Reposition (ICD-10-PCS; 2017-03-13)
PROC: 0RS Upper Joints, Reposition (ICD-10-PCS; 2017-03-13)
PROC: 0RQ Upper Joints, Repair (ICD-10-PCS; 2017-03-13)
PROC: 0RQ Upper Joints, Repair (ICD-10-PCS; 2017-03-13)
PROC: 5A0935Z Assistance with Respiratory Ventilation, Less than 24 Consecutive Hours (ICD-10-PCS; 2017-03-13)
PROC: 0NBV0ZZ Excision of Left Mandible, Open Approach (ICD-10-PCS; principal; 2017-03-13 16:41)
PROC: 02HV33Z Insertion of Infusion Device into Superior Vena Cava, Percutaneous Approach (ICD-10-PCS; 2017-03-14)
PROC: B548ZZA Ultrasonography of Superior Vena Cava, Guidance (ICD-10-PCS; 2017-03-14)
PROC: 0BH18EZ Insertion of Endotracheal Airway into Trachea, Via Natural or Artificial Opening Endoscopic (ICD-10-PCS; 2017-03-14)
PROC: 5A1945Z Respiratory Ventilation, 24-96 Consecutive Hours (ICD-10-PCS; 2017-03-14)
PROC: 5A12012 Performance of Cardiac Output, Single, Manual (ICD-10-PCS; 2017-03-18)
PROC: 0BH18EZ Insertion of Endotracheal Airway into Trachea, Via Natural or Artificial Opening Endoscopic (ICD-10-PCS; 2017-03-18)
DX: S03.03XA Dislocation of jaw, bilateral, initial encounter (principal); J96.02 Acute respiratory failure with hypercapnia; A35 Other tetanus; E43 Unspecified severe protein-calorie malnutrition; J18.9 Pneumonia, unspecified organism; Z51.5 Encounter for palliative care; J90 Pleural effusion, not elsewhere classified; L89.150 Pressure ulcer of sacral region, unstageable; G20 Parkinson's disease; L89.621 Pressure ulcer of left heel, stage 1; L89.611 Pressure ulcer of right heel, stage 1; Z68.1 Body mass index [BMI] 19.9 or less, adult; F02.80 Dementia in other diseases classified elsewhere, unspecified severity, without behavioral disturbance, psychotic disturbance, mood disturbance, and anxiety; D64.9 Anemia, unspecified; I10 Essential (primary) hypertension; E78.5 Hyperlipidemia, unspecified; D72.829 Elevated white blood cell count, unspecified; E87.6 Hypokalemia; M16.10 Unilateral primary osteoarthritis, unspecified hip; Z96.649 Presence of unspecified artificial hip joint; X58.XXXA Exposure to other specified factors, initial encounter; Y93.9 Activity, unspecified; Y92.129 Unspecified place in nursing home as the place of occurrence of the external cause; M26.613 Adhesions and ankylosis of bilateral temporomandibular joint; S81.802A Unspecified open wound, left lower leg, initial encounter; S81.801A Unspecified open wound, right lower leg, initial encounter; D50.9 Iron deficiency anemia, unspecified; K21.9 Gastro-esophageal reflux disease without esophagitis; Z66 Do not resuscitate
CPT/HCPCS: 31720; 36415; 36569; 36600; 70486-TC; 71010-TC; 80048-TC; 81000-TC; 82306; 82728-TC; 82803-TC; 82962-TC; 83540-TC; 83735-TC; 84100-TC; 84439-TC; 84443-TC; 84478-TC; 84484-TC; 85025-TC; 85730-TC; 87040-TC; 87081-TC; 87086-TC; 88305-TC; 88311-TC; 93307-TC; 94002-TC; 94003-TC; 94799-TC; A4606; A4624; A6248; A6402; A9563; C1751; C1769; C9113; J0171; J0330; J1100; J1650; J1800; J2270; J2704; J2916; J3010; J3475; J3480; J3490; J7030; J7040; J7042; J7050; J7060; Z7610